=== PATIENT | female | born 1985 | race Caucasian/White ===

== ENCOUNTER 2018-03-19 16:35 | Emergency (ER) | payer OTHER ==
--- NOTE | 2018-03-19 17:15 | ED ---
Complex/Multi-Sys Presentation - HPI Summary HPI Summary: This patient is a 32 year old F presenting to [facility] accompanied by an older woman with a chief complaint of alleged withdrawal from tizanidine. The patient rates the pain 8/10 in severity. Patient reports vomiting, fever, myalgia, GRANADO, and fatigue. Pt states she ran out of her tizanidine this morning between the hours of 0200 and 0700 this morning. Pt states she is unsure how much she takes she states I dont know I just wake up my head hurts, I take more and go back to bed this cycle occurs multiple times throughout the night. She states she just arrived in [place] less than a week ago and that her PCP in [place] wrote her the script for the tizanidine. She reports that her refill is the 3rd of next month and that she takes 2-4mg tablets BID. Pt just got off opiates 9 days ago per triage note. In the room patient states she does not believe tizanidine will be enough to help her headache, when told she would receive Benadryl and reglan she is visible upset and has nothing wrong with her sinuses and verbalizes that she does not understand why she would need that. - History Of Current Complaint Chief Complaint: EDDetoxRequest Time Seen by Provider: 03/19/18 16:50 Hx Obtained From: Patient Onset/Duration: Lasting Hours, Still Present Timing: Constant Severity Currently: Moderate Severity Initially: Moderate Associated Signs And Symptoms: Positive: Other - vomiting, fever, myalgia, GRANADO, and fatigue - Allergies/Home Medications Allergies/Adverse Reactions: Allergies Allergy/AdvReac Type Severity Reaction Status Date / Time No Known Allergies Allergy Verified 03/19/18 16:43 Home Medications: Home Medications Aspirin/Acetaminophen/Caffeine [Excedrin Extra Strength Caplet] 1 each PO Q1H PRN 03/19/18 [History Confirmed 03/19/18] Baclofen TAB* [Lioresal TAB*] 10 mg PO TID PRN 03/19/18 [History Confirmed 03/19] Rizatriptan Benzoate [Maxalt-Denier Control Operator] 10 mg PO DAILY PRN 03/19/18 [History Confirmed 03/19/18] clonazePAM TAB(*) [KlonoPIN TAB(*)] 1 mg PO TID PRN 03/19/18 [History Confirmed 03/19/18] tiZANidine TAB* 8 mg PO BID 03/19/18 [History Confirmed 03/19/18] PMH/Surg Hx/FS Hx/Imm Hx Endocrine/Hematology History: Denies: Hx Diabetes Cardiovascular History: Denies: Hx Auto Implanted Cardiovert Defib Neurological History: Reports: Hx Headaches, Hx Migraine Psychiatric History: Reports: Hx Anxiety, Hx Depression - MDD , Hx Post Traumatic Stress Disorder Infectious Disease History: No Infectious Disease History: Denies: Traveled Outside the [place] in Last 30 Days - Family History Known Family History: Positive: Non-Contributory - Social History Alcohol Use: Rare Substance Use Type: Reports: None Smoking Status (MU): Light Every Day Tobacco Smoker Review of Systems Positive: Fever, Fatigue Positive: Vomiting Positive: Myalgia Positive: Headache All Other Systems Reviewed And Are Negative: Yes Physical Exam - Summary Physical Exam Summary: Appearance: Well appearing, no pain distress Skin: warm, dry, reflects adequate perfusion Head/face: normal Eyes: EOMI, GENE ENT: normal Neck: supple, non-tender Respiratory: CTA, breath sounds present Cardiovascular: RRR, pulses symmetrical Abdomen: non-tender, soft Musculoskeletal: normal, strength/ROM intact Neuro: normal, sensory motor intact, A&Ox3 Triage Information Reviewed: Yes Vital Signs On Initial Exam: Initial Vitals Temp Pulse Resp BP Pulse Ox 100.6 F 138 18 131/93 97 03/19/18 16:36 03/19/18 16:36 03/19/18 16:36 03/19/18 16:36 03/19/18 16:36 Vital Signs Reviewed: Yes Diagnostics - Vital Signs Vital Signs Temp Pulse Resp BP Pulse Ox 03/19/18 16:36 100.6 F 138 18 131/93 97 - Laboratory Result Diagrams: 03/19/18 17:31 03/19/18 17:31 Lab Statement: Any lab studies that have been ordered have been reviewed, and results considered in the medical decision making process. - CT CT Brain CT Interpretation Completed By: Radiologist Lida Multi-Symp Course/Dx Assessment/Plan: This patient is a 32 year old F presenting to [facility] accompanied by an older woman with a chief complaint of alleged withdrawal from tizanidine. Patient reports vomiting, fever, myalgia, GRANADO, and fatigue. CT brain reveals, per radiologist, No acute intracranial abnormality. Bloodwork and UA obtained. In the ED course the patient was given fioricet, Benadryl, toradol, solumedrol, reglan, and IV fluids. Patient will be discharged with prescription for zanaflex and fioricet and follow up from PCP referral center. The patient is agreeable with this plan. - Diagnoses Differential Diagnoses/HQI/PQRI: Other - headache Provider Diagnoses: Headache Discharge - Sign-Out/Discharge Documenting (check all that apply): Patient Departure - Discharge Plan Condition: Stable Disposition: HOME Prescriptions: Butalb/Acetamin/Caff TAB* [Fioricet TAB*] 1 tab PO TID #15 tab MDD 3 tiZANidine TAB* [Zanaflex TAB*] 4 mg PO DAILY #30 tab MDD 8mg Patient Education Materials: Acute Headache (ED) Referrals: [facility] [Outside] [facility] [Outside] Additional Instructions: Follow up with your primary care physician in 1-3 days. RETURN TO THE EMERGENCY DEPARTMENT FOR CHANGING OR WORSENING SYMPTOMS. - Billing Disposition and Condition Condition: STABLE Disposition: Home - Attestation Statements Document Initiated by Neyibe: Yes Documenting Scribe: Moe Shoemaker Provider For Whom Neyibe is Documenting (Include Credential): Khai Beck MD Scribe Attestation: Moe Courtney scribed for Khai Beck MD on 03/19/18 at 2134. Scribe Documentation Reviewed: Yes Provider Attestation: The documentation as recorded by the Moe garcia accurately reflects the service I personally performed and the decisions made by , Khai Beck MD
[2018-03-19] MEDS ORDERED: Metoclopramide IV* 5 MG/ML 2 ML VIAL IV ONE (17:20)
[2018-03-19] MEDS ORDERED: NS 0.9% 1000 ML* 1,000 ML IV ONE (17:20)
[2018-03-19] MEDS ORDERED: diPHENhydraMINE IV* 50 MG/ML 1 ml VIAL (BENADRYL) IV ONE (17:20)
[2018-03-19] MEDS ORDERED: diPHENhydraMINE PO* 50 MG PO ONE (17:42)
[2018-03-19 17:43] LABS: ABS Basophils 0.1 10^3/ul (0-0.2); ABS Eosinophils 0 10^3/ul (0-0.6); ABS Monocytes 0.3 10^3/ul (0-0.8); ABS Neutrophils 7.9 10^3/ul (1.5-7.7); ABS Nucleated RBC 0 10^3/ul; Eosinophil % 0.1 % (0-6); Hematocrit 43 % (35-47); Hemoglobin 14.3 g/dl (12.0-16.0); Lymphocyte % 10.9 % (25-47); Mean Corpuscular HGB Conc 34 g/dl (31-36); Mean Corpuscular Hemoglobin 31 pg (27-31); Mean Corpuscular Volume 91 fL (80-97); Mean Platelet Volume 7.1 fL (7.4-10.4); Nucleated Red Blood Cells % 0; Platelet Count 497 10^3/ul (150-450); Red Blood Count 4.67 10^6/ul (4.00-5.40); Red Cell Distribution Width 14 % (10.5-15); White Blood Count 9.3 10^3/ul (3.5-10.8)
[2018-03-19] MEDS ORDERED: diPHENhydraMINE PO* 50 MG ONE (17:43)
[2018-03-19] MEDS ORDERED: methylPREDNISolone 125 MG* 2 ML VIAL IV ONE (17:46)
[2018-03-19 17:55] LABS: INR 0.93 (0.77-1.02)
[2018-03-19 17:59] LABS: EGFR Non-African American 82.1 (>60)
[2018-03-19 18:16] VITALS: BP 126/96
[2018-03-19 18:33] LABS: Urine Appearance Clear; Urine Blood 1+ (Negative); Urine Color Straw; Urine Ketones Negative (Negative); Urine Protein Negative (Negative); Urine Red Blood Cell Trace(0-2/hpf) (Absent); Urine Specific Gravity 1.009 (1.010-1.030); Urine Urobilinogen Negative (Negative); Urine White Blood Cell Trace(0-5/hpf) (Absent)
[2018-03-19] MEDS ORDERED: Ketorolac INJ* 30 MG/ML 1 ML VIAL IV PUSH ONE (18:57)
[2018-03-19] MEDS ORDERED: Ketorolac INJ* 30 MG/ML 1 ML VIAL ONE (18:58)
[2018-03-19] MEDS ORDERED: Butalb/Acetamin/Caff TAB* 1 TAB PO ONE (19:23)
[2018-03-19] MEDS ORDERED: tiZANidine TAB* 2 MG PO ONE (20:00)
== END 2018-03-19 20:00 | disposition home or self-care (01) ==
LOC: ED 16:35
DX: R51 Headache (principal); R11.10 Vomiting, unspecified; R50.9 Fever, unspecified; R53.83 Other fatigue; M79.10 Myalgia, unspecified site; F41.9 Anxiety disorder, unspecified; F19.939 Other psychoactive substance use, unspecified with withdrawal, unspecified; F17.200 Nicotine dependence, unspecified, uncomplicated
CPT/HCPCS: 36415; 70450; 80053; 81003; 81015; 84702; 85025; 85610; 85730; 87086; 96361; 96374; 96375; 99282; A9270-GY; J1885; J2765; J2930

== ENCOUNTER 2018-04-16 23:32 | Emergency (ER) | payer MEDICAID ==
[2018-04-17] MEDS: NS 0.9% 1000 ML* 2,000 ML IV ONE (00:02)
--- NOTE | 2018-04-17 00:12 | ED ---
Syncope/Near Syncope - HPI Summary HPI Summary: A 32 y/o female accompanied by friends brought in by ambulance presents to the ED c/o syncopal episodes. In the ED room, the patient has a pulse of 81 BPM, O2 saturation of 99%, and blood pressure of 107/71. As per triage, "Pt brought in by [facility] d/t syncope. Pt states she has been smoking marijuana today and syncopized. EMS report they were dispatched to her home for same complaint earlier but pt signed off. Pt with no c/o pain or discomfort expressed at this time. cardiac monitor applied with noted NSR and HR 79. IV line placed by EMS. Awaiting ED MD evaluation". According to the patient, she had two syncope episodes in the last hour back to back. She stated that she passed out and then came back to her senses, then passed out again. Her friend stated that she heart the patient fall. She noted that the patient was going in and out of consciousness. The patient further noted that this has never happened before. Patient saw her PCP a few days ago, but no blood work was done, however, there was blood work that was done around which she is not sure if it was normal or not. Patient had a couple bowls of cereal earlier. Patient thinks her period started a couple days ago, but she is not sure. Patient takes Excedrin. No PMHx of anemia. - History Of Current Complaint Chief Complaint: EDSyncope Time Seen by Provider: 04/16/18 23:39 Hx Obtained From: Patient Onset/Duration: Sudden Onset, Lasting Minutes Timing: Intermittent Episode Lasting Context: Witnessed - PATIENT'S FRIEND HEARD PATIENT FALL Activity At Onset: At Rest Aggravating Factor(s): Nothing Alleviating Factor(s): Nothing Associated Signs And Symptoms: Negative - Allergies/Home Medications Allergies/Adverse Reactions: Allergies Allergy/AdvReac Type Severity Reaction Status Date / Time No Known Allergies Allergy Verified 04/16/18 23:43 PMH/Surg Hx/FS Hx/Imm Hx Endocrine/Hematology History: Denies: Hx Diabetes Cardiovascular History: Denies: Hx Auto Implanted Cardiovert Defib Neurological History: Reports: Hx Headaches, Hx Migraine Psychiatric History: Reports: Hx Anxiety, Hx Depression - MDD , Hx Post Traumatic Stress Disorder - Surgical History Surgery Procedure, Year, and Place: PER PATIENT, NO PRIOR SURGERIES. Infectious Disease History: No Infectious Disease History: Denies: Traveled Outside the [place] in Last 30 Days - Family History Known Family History: Negative: Blood Disorder - Social History Alcohol Use: Rare Substance Use Type: Reports: Marijuana Smoking Status (MU): Light Every Day Tobacco Smoker Review of Systems Negative: Fever Neurological: Other - POSITIVE: LOC Positive: Syncope All Other Systems Reviewed And Are Negative: Yes Physical Exam - Summary Physical Exam Summary: VITAL SIGNS: Reviewed. GENERAL: Patient is a pale-looking female who is lying comfortable in the stretcher. Patient is not in any acute respiratory distress. HEAD AND FACE: No signs of trauma. No ecchymosis, hematomas or skull depressions. No sinus tenderness. EYES: PERRLA, EOMI x 2, No injected conjunctiva, no nystagmus. EARS: Hearing grossly intact. Ear canals and tympanic membranes are within normal limits. MOUTH: Oropharynx within normal limits. NECK: Supple, trachea is midline, no adenopathy, no JVD, no carotid bruit, no c- spine tenderness, neck with full ROM. CHEST: Symmetric, no tenderness at palpation LUNGS: Clear to auscultation bilaterally. No wheezing or crackles. CVS: Regular rate and rhythm, S1 and S2 present, no murmurs or gallops appreciated. ABDOMEN: Soft, non-tender. No signs of distention. No rebound no guarding, and no masses palpated. Bowel sounds are normal. EXTREMITIES: FROM in all major joints, no edema, no cyanosis or clubbing. NEURO: Alert and oriented x 3. No acute neurological deficits. Speech is normal and follows commands. SKIN: Pale skin Triage Information Reviewed: Yes Vital Signs On Initial Exam: Initial Vitals Temp Pulse Resp BP Pulse Ox 99.1 F 79 16 107/71 99 04/16/18 23:39 04/16/18 23:39 04/16/18 23:39 04/16/18 23:39 04/16/18 23:39 Vital Signs Reviewed: Yes Diagnostics - Vital Signs Vital Signs Temp Pulse Resp BP Pulse Ox 04/16/18 23:39 99.1 F 79 16 107/71 99 - Laboratory Result Diagrams: 04/17/18 00:18 04/17/18 00:18 Lab Statement: Any lab studies that have been ordered have been reviewed, and results considered in the medical decision making process. - EKG 0008 Cardiac Rate: NL - 76 BPM EKG Rhythm: Sinus Rhythm - 76 BPM Summary of EKG Findings: Normal axis. Normal interval. No ischemic changes. Re-Evaluation - Re-Evaluation First Eval Re-Evaluation Time: 01:50 Change: Improved Comment: PATIENT FEELS MUCH BETTER. PATIENT WOULD LIKE TO GO HOME. Course/Dx Course Of Treatment: A 32 y/o female accompanied by friends brought in by ambulance presents to the ED c/o syncopal episodes. In the ED room, the patient has a pulse of 81 BPM, O2 saturation of 99%, and blood pressure of 107/71. Physical examination revealed patients skin is pale. An EKG revealed NSR of 76 BPM. Normal axis. Normal interval. No ischemic changes. Hematology, Chemistry, and Serology screens were done. No significant laboratory abnormalities were found. In the ED course, the patient received IV fluids. Patient was able to walk around the ED with no complications. Patient indicated that she would like to go home. Patient will be discharged with a diagnosis of syncope. Patient is to follow up with primary care provider in 1-2 days. Patient is to return to ED for any new or worsening symptoms. Patient is agreeable with this plan. - Diagnoses Provider Diagnoses: Syncope Discharge - Sign-Out/Discharge Documenting (check all that apply): Patient Departure - DISCHARGE - Discharge Plan Condition: Stable Disposition: HOME Patient Education Materials: Syncope (ED) Referrals: [facility] [Outside] - 2 Days Additional Instructions: FOLLOW UP WITH PRIMARY CARE PROVIDER IN 1-2 DAYS. RETURN TO THE ED FOR ANY NEW OR WORSENING SYMPTOMS. - Attestation Statements Document Initiated by Kathye: Yes Documenting Scribe: Albaro Penn Provider For Whom Erin is Documenting (Include Credential): Abbey Wen MD Scribe Attestation: Albaro Courtney, scribed for Abbey Wen MD on 04/17/18 at 0201. Status of Scribe Document: Ready
[2018-04-17 00:26] LABS: ABS Basophils 0 10^3/ul (0-0.2); ABS Eosinophils 0 10^3/ul (0-0.6); ABS Monocytes 0.4 10^3/ul (0-0.8); ABS Neutrophils 5.1 10^3/ul (1.5-7.7); ABS Nucleated RBC 0 10^3/ul; Eosinophil % 0.8 %; Hematocrit 28 % (35-47); Lymphocyte % 14.7 %; Mean Corpuscular HGB Conc 33 g/dl (31-36); Mean Corpuscular Hemoglobin 30 pg (27-31); Mean Corpuscular Volume 91 fL (80-97); Nucleated Red Blood Cells % 0; Platelet Count 395 10^3/ul (150-450); Red Blood Count 3.06 10^6/ul (4.00-5.40); Red Cell Distribution Width 14 % (10.5-15); White Blood Count 6.5 10^3/ul (3.5-10.8)
[2018-04-17 00:40] LABS: INR 0.92 (0.77-1.02)
[2018-04-17 00:42] LABS: ALT 8 U/L (7-52); AST 10 U/L (13-39); Albumin 3.7 g/dL (3.2-5.2); Albumin/Globulin Ratio 1.6 (1-3); Alkaline Phosphatase 89 U/L (34-104); Anion Gap 7 mmol/L (2-11); BUN/Creatinine Ratio 23.2 (8-20); Blood Urea Nitrogen 16 mg/dL (6-24); CO2 Carbon Dioxide 24 mmol/L (22-32); Calcium 8.6 mg/dL (8.6-10.3); Chloride 110 mmol/L (101-111); EGFR Non-African American 97.4 (>60); Globulin 2.3 g/dL (2-4); Glucose 158 mg/dL (70-100); Potassium 3.6 mmol/L (3.5-5.0); Sodium 141 mmol/L (135-145)
[2018-04-17 00:48] LABS: HCG Pregnancy < 0.60 mIU/mL
[2018-04-17 00:57] LABS: Alcohol < 10 mg/dL (<10)
[2018-04-17 01:52] VITALS: BP 94/59
== END 2018-04-17 02:08 | disposition home or self-care (01) ==
LOC: ED 23:32
DX: R55 Syncope and collapse (principal); F17.210 Nicotine dependence, cigarettes, uncomplicated
CPT/HCPCS: 36415; 80053; 80320; 84484; 84702; 85025; 85610; 85730; 86850; 86900; 86901; 93005; 96360; 99283; G0480

== ENCOUNTER → 2018-07-27 19:29 | Emergency (ER) | payer OTHER ==
[~2018-07-27 19:29] MED LIST: clonazePAM TAB(*) 1 MG PO ONE
--- OUTSIDE RECORDS SUMMARY | 2018-07-27 19:44 | XMS REPORT | Continuity of Care Document ---
:1985 External Reference #:[id number] Author Name Bren Aguillon Care Team Providers Name Role Phone Karolyn Recinos M.D. Primary Care Physician Unavailable Payers Date Identification Numbers Payment Provider Subscriber Effective: 2018 Policy Number: [id number] Vega Basilio Group Name: [id number] [address] PayID: [id number] [place] [address] Effective: 2018 Policy Number: [id number] Medicaid Nettie Basilio Expires: 2018 Group Name: 1 [id number] [address] PayID: [id number] [place] [address] Advance Directives Description No Information Available Problems Description No Information Family History Date Family Member(s) Observation Comments Father Alcoholism : (age 45 Years) Mother due to Heart Disease Social History Type Date Description Comments Sex Unknown Marital Status Single Lives With Roommate Occupation Unemployed Tobacco Use Start: Unknown Light tobacco smoker (10 or fewer cigarettes/day) Smoking Status Reviewed: 06/28/18 Light tobacco smoker (10 or fewer cigarettes/day) ETOH Use Has consumed alcohol in the past Tobacco Use Start: Unknown Light tobacco smoker (10 or fewer cigarettes/day) Recreational Drug Use Current Drug User THC Allergies, Adverse Reactions, Alerts Date Description Reaction Status Severity Comments 04/04/2018 Lamictal Active suicidal ideation, sudden onset. 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 04/04/ Active Tablets 10mg 18tab take 1 2017 Dispers s tablet as Recinos, needed for MD migraine Clonazepam / Active Tablets 1mg 30tab 1 tablet 0000 s once a day Recinos, as needed MD for anxiety Buprenorphine 06/05/ Hx Tablets Sub 2mg 60tab 1 sl 1-2 x G89.4 HCL 2018 - s day as Recinos, 06/28/ needed for MD 2019 pain Prednisone 05/08/ Hx Tablets 20mg 6tabs 3 tabs G43.101 2018 - once a day Recinos, 06/05/ for 3 days MD 2018 Ketorolac 05/08/ Hx Solution 30mg/ml 2ml 2mL Im x 1 G43.101 Tromethamine 2018 - Recinos, 06/28/ MD 2018 Fioricet 04/04/ Hx Capsules 50-300-40 10cap 1 tab [place] 2017 - mg s daily as Senner, 06/05/ needed for DO 2019 migraines. Medications Administered in Office Medication Date Status Form Strength Qnty SIG Indications Ordering Provider No Injection 05/08/19 Administered Injection MD Jorje Immunizations Description No Information Available Vital Signs Date Vital Result Comment 06/28/2018 10:21am Height 65.25 inches 5'5.25" Weight 120.25 lb Heart Rate 80 /min BP Systolic 94 mmHg BP Diastolic 64 mmHg Body Temperature 98.2 F O2 % BldC Oximetry 97 % BMI (Body Mass Index) 19.9 kg/m2 06/05/2018 1:40pm Height 65.25 inches 5'5.25" Weight 121.38 lb Heart Rate 107 /min BP Systolic Sitting 122 mmHg BP Diastolic Sitting 76 mmHg Respiratory Rate 20 /min O2 % BldC Oximetry 97 % at rest on room air BMI (Body Mass Index) 20.0 kg/m2 05/08/2018 3:22pm Height 65.25 inches 5'5.25" Weight 114.12 lb Heart Rate 111 /min BP Systolic 129 mmHg BP Diastolic 89 mmHg Body Temperature 98.2 F O2 % BldC Oximetry 98 % BMI (Body Mass Index) 18.8 kg/m2 04/13/2018 11:44am Weight 111.00 lb Heart Rate 82 /min BP Systolic 110 mmHg BP Diastolic 72 mmHg Respiratory Rate 16 /min Pain Level 5 head O2 % BldC Oximetry 98 % 04/04/2018 3:46pm Height 67 inches 5'7" Weight 114.00 lb Heart Rate 76 /min BP Systolic 104 mmHg BP Diastolic 64 mmHg Respiratory Rate 16 /min Body Temperature 98.8 F Pain Level 5 head O2 % BldC Oximetry 98 % BMI (Body Mass Index) 17.9 kg/m2 Results Test Date Facility Test Result H/L Range Note Drug Abuse 06/28/2018 [facility] Urine Amphetamine Negative ng/ mL 1, 2 [address] [place] [address] [phone] Urine Barbiturates Negative ng/mL 3 Urine Benzodiazepines Negative ng/mL 4 Urine Cocaine Negative ng/mL 5 Urine Phencyclidine Negative ng/mL Cutoff: 25 Urine Tetrahydrocannabinol Negative ng/mL Cutoff: 50 6 Creatinine, Urine 116.6 mg/dL Specific [place] 1.013 pH 5.8 Oxidants Negative 7 Adulterants Comment Normal Codeine, Ur Not Detected ng/mL Cutoff: 25 8 Ezxjroj-0-xpdu-glucuronide, Ur Not Detected ng/mL 9 Morphine, Ur Not Detected ng/mL Cutoff: 25 10 Tkttjgzv-6-wnew-glucuronide, U Not Detected ng/mL 11 6-monoacetylmorphine, Ur Not Detected ng/mL Cutoff: 25 12 Hydrocodone, Ur Not Detected ng/mL Cutoff: 25 13 Norhydrocodone, Ur Not Detected ng/mL Cutoff: 25 14 Dihydrocodeine, Ur Not Detected ng/mL Cutoff: 25 15 Hydromorphone, Ur Not Detected ng/mL Cutoff: 25 16 Gaireoebqjsry9jnhvvppoyqbvqtf Not Detected ng/mL 17 Oxycodone, Ur Not Detected ng/mL Cutoff: 25 18 Noroxycodone, Ur Not Detected ng/mL Cutoff: 25 19 Oxymorphone, Ur Not Detected ng/mL Cutoff: 25 20 Ffbqqujzdaa-3-udgk-glucuronide Not Detected ng/mL 21 Noroxymorphone, Ur Not Detected ng/mL Cutoff: 25 22 Fentanyl, Ur Not Detected ng/mL Cutoff: 2 23 Norfentanyl, Ur Not Detected ng/mL Cutoff: 2 24 Meperidine, Ur Not Detected ng/mL Cutoff: 25 25 Normeperidine, Ur Not Detected ng/mL Cutoff: 25 26 Naloxone, Ur Not Detected ng/mL Cutoff: 25 27 Adqfvdnh-1-zent-glucuronide, U Not Detected ng/mL 28 Methadone, Ur Not Detected ng/mL Cutoff: 25 29 Eddp, Ur Not Detected ng/mL Cutoff: 25 30 Propoxyphene, Ur Not Detected ng/mL Cutoff: 25 31 Norpropoxyphene, Ur Not Detected ng/mL Cutoff: 25 32 Tramadol, Ur Not Detected ng/mL Cutoff: 25 33 O-desmethyltramadol, Ur Not Detected ng/mL Cutoff: 25 34 Tapentadol, Ur Not Detected ng/mL Cutoff: 25 35 N-desmethyltapentadol, Ur Not Detected ng/mL Cutoff: 50 36 Osnpacwrjc-rspw-dihjqvvzole, U Not Detected ng/mL 37 Buprenorphine, Ur Present ng/mL Abnormal Cutoff: 5 38 Norbuprenorphine, Ur Present ng/mL Abnormal Cutoff: 5 39 Norbuprenorphine glucuronide Present ng/mL Abnormal Cutoff: 20 40 Opioid Interpretation See Comment 41 Thyroid Panel 06/05/2018 [facility] Free T4 (Free 0.63 ng/dL N 0.61-1.[address] Thyroxine) [place] [address] [phone] Thyroxine 6.97 ?g/dL N 6.09-12.23 TSH (Thyroid Stim Horm) 0.93 mcIU/mL N 0.34-5.60 Laboratory test 06/05/2018 [facility] Vitamin B12 446 pg/mL N 180-914 [address] [place] [address] [phone] Liver Function 06/05/2018 [facility] Total Protein 7.1 g/dL N 6.4-8.[address] [place] [address] [phone] Albumin 4.6 g/dL N 3.2-5.2 Globulin 2.5 g/dL N 2-4 Albumin/Globulin Ratio 1.8 N 1-3 Total Bilirubin 0.20 mg/dL N 0.2-1.0 Direct Bilirubin 0.00 mg/dL Low 0.03-0.18 Alkaline Phosphatase 131 U/L High 34-104 Alt 13 U/L N 7-52 Ast 13 U/L N 13-39 Basic Metabolic Panel 06/05/2018 [facility] Sodium 143 mmol/L N 135-[address] [place] [address] [phone] Potassium 4.4 mmol/L N 3.5-5.0 Chloride 108 mmol/L N 101-111 Co2 Carbon Dioxide 27 mmol/L N 22-32 Anion Gap 8 mmol/L N 2-11 Glucose 94 mg/dL N 70-100 Blood Urea Nitrogen 24 mg/dL N 6-24 Creatinine 0.64 mg/dL N 0.51-0.95 BUN/Creatinine Ratio 37.5 High 8-20 Calcium 9.5 mg/dL N 8.6-10.3 Egfr Non- 106.2 >60 Egfr 128.5 >60 43 Drug Abuse 20 06/05/2018 [facility] Urine Amphetamine Negative ng/mL [address] [place] [address] [phone] Urine Barbiturates Negative ng/mL 45 Urine Benzodiazepines Negative ng/mL 46 Urine Cocaine Negative ng/mL 47 Urine Phencyclidine Negative ng/mL Cutoff: 25 Urine Tetrahydrocannabinol Negative ng/mL Cutoff: 50 48 Creatinine, Urine 137.7 mg/dL Specific [place] 1.021 pH 5.4 Oxidants Negative 49 Adulterants Comment Normal Codeine, Ur Not Detected ng/mL Cutoff: 25 50 Zxtmtdp-7-hlvy-glucuronide, Ur Not Detected ng/mL 51 Morphine, Ur Not Detected ng/mL Cutoff: 25 52 Aglpcxrg-8-ddlh-glucuronide, U Not Detected ng/mL 53 6-monoacetylmorphine, Ur Not Detected ng/mL Cutoff: 25 54 Hydrocodone, Ur Not Detected ng/mL Cutoff: 25 55 Norhydrocodone, Ur Not Detected ng/mL Cutoff: 25 56 Dihydrocodeine, Ur Not Detected ng/mL Cutoff: 25 57 Hydromorphone, Ur Not Detected ng/mL Cutoff: 25 58 Sboeajqitutof7uuscggxztrhsvfz Not Detected ng/mL 59 Oxycodone, Ur Not Detected ng/mL Cutoff: 25 60 Noroxycodone, Ur Not Detected ng/mL Cutoff: 25 61 Oxymorphone, Ur Not Detected ng/mL Cutoff: 25 62 Flqmigpglbx-3-rfhb-glucuronide Not Detected ng/mL 63 Noroxymorphone, Ur Not Detected ng/mL Cutoff: 25 64 Fentanyl, Ur Not Detected ng/mL Cutoff: 2 65 Norfentanyl, Ur Not Detected ng/mL Cutoff: 2 66 Meperidine, Ur Not Detected ng/mL Cutoff: 25 67 Normeperidine, Ur Not Detected ng/mL Cutoff: 25 68 Naloxone, Ur Not Detected ng/mL Cutoff: 25 69 Biwgxgga-1-qfdo-glucuronide, U Not Detected ng/mL 70 Methadone, Ur Not Detected ng/mL Cutoff: 25 71 Eddp, Ur Not Detected ng/mL Cutoff: 25 72 Propoxyphene, Ur Not Detected ng/mL Cutoff: 25 73 Norpropoxyphene, Ur Not Detected ng/mL Cutoff: 25 74 Tramadol, Ur Not Detected ng/mL Cutoff: 25 75 O-desmethyltramadol, Ur Not Detected ng/mL Cutoff: 25 76 Tapentadol, Ur Not Detected ng/mL Cutoff: 25 77 N-desmethyltapentadol, Ur Not Detected ng/mL Cutoff: 50 78 Yrepdennry-lrvl-bxmnckazcsz, U Not Detected ng/mL 79 Buprenorphine, Ur Not Detected ng/mL Cutoff: 5 80 Norbuprenorphine, Ur Not Detected ng/mL Cutoff: 5 81 Norbuprenorphine glucuronide Not Detected ng/mL Cutoff: 20 82 Opioid Interpretation See Comment 83 1 [id number] REFERENCE VALUE Cutoff: 500 3 REFERENCE VALUE Cutoff: 200 4 REFERENCE VALUE Cutoff: 100 5 REFERENCE VALUE Cutoff: 150 6 ADDITIONAL INFORMATION This report is intended for use in clinical monitoring or management of patients. It is not intended for use in employment-related testing. 7 REFERENCE VALUE Cutoff: 200 mg/L 8 Tylenol 3 9 Metabolite of codeine REFERENCE VALUE Cutoff: 100 10 [place] Portillo, Contin; Also a minor metabolite (10%) of codeine and can be seen in low concentrations (<2,000 ng/mL) with poppy seed ingestion. 11 Metabolite of morphine REFERENCE VALUE Cutoff: 100 12 Metabolite of heroin 13 Lortab, Wilson, Vicodin; Also a very minor metabolite of codeine and impurity (<1%) of oxycodone. 14 Metabolite of hydrocodone 15 Metabolite of hydrocodone 16 Dilaudid, Exalgo; Also a metabolite of hydrocodone and a minor (<5%) metabolite of morphine. 17 Metabolite of hydromorphone REFERENCE VALUE Cutoff: 100 18 Endocet, Percocet, Oxycontin 19 Metabolite of oxycodone 20 Numorphan, Opana; Also a metabolite of oxycodone. 21 Metabolite of oxymorphone REFERENCE VALUE Cutoff: 100 22 Metabolite of oxymorphone 23 Actiq, Duragesic, Fentora 24 Metabolite of fentanyl 25 Demerol 26 Metabolite of meperidine 27 Narcan 28 Metabolite of naloxone REFERENCE VALUE Cutoff: 100 29 Dolophine 30 Metabolite of methadone 31 Darvon, Darvocet 32 Metabolite of propoxyphene 33 Tradol, Ultram, Ultracet 34 Metabolite of tramadol 35 Nucynta 36 Metabolite of tapentadol 37 Metabolite of tapentadol REFERENCE VALUE Cutoff: 100 38 Buprenex, Suboxone 39 Metabolite of buprenorphine 40 Metabolite of buprenorphine 41 Test detected the presence of buprenorphine and its metabolites (norbuprenorphine, norbuprenorphine glucuronide). Suspect use of buprenorphine within the past three days. ADDITIONAL INFORMATION This test was developed and its performance characteristics determined by [facility] in a manner consistent with CLIA requirements. This test has not been cleared or approved by the U.S. Food and Drug Administration. Test Performed by: [facility] [address] [place] [address] 42 Normal Range 180 to 914 Indeterminate Range 145 to 180 Deficient Range <145 43 Because ethnic data is not always readily available, this report includes an eGFR for both -Americans and non- Americans. The National Kidney Disease Education Program (NKDEP) does not endorse the use of the MDRD equation for patients that are not between the ages of 18 and 70, are , have extremes of body size, muscle mass, or nutritional status, or are non- or non-. According to the National Kidney Foundation, irrespective of diagnosis, the stage of the disease is based on the level of kidney function: Stage Description GFR(mL/min/1.73 m(2)) 1 Kidney damage with normal or decreased GFR 90 2 Kidney damage with mild decrease in GFR 60-89 3 Moderate decrease in GFR 30-59 4 Severe decrease in GFR 15-29 5 Kidney failure <15 (or dialysis) 44 REFERENCE VALUE Cutoff: 500 45 REFERENCE VALUE Cutoff: 200 46 REFERENCE VALUE Cutoff: 100 47 REFERENCE VALUE Cutoff: 150 48 ADDITIONAL INFORMATION This report is intended for use in clinical monitoring or management of patients. It is not intended for use in employment-related testing. 49 REFERENCE VALUE Cutoff: 200 mg/L 50 Tylenol 3 51 Metabolite of codeine REFERENCE VALUE Cutoff: 100 52 [place] Portillo, Contin; Also a minor metabolite (10%) of codeine and can be seen in low concentrations (<2,000 ng/mL) with poppy seed ingestion. 53 Metabolite of morphine REFERENCE VALUE Cutoff: 100 54 Metabolite of heroin 55 Lortab, Wilson, Vicodin; Also a very minor metabolite of codeine and impurity (<1%) of oxycodone. 56 Metabolite of hydrocodone 57 Metabolite of hydrocodone 58 Dilaudid, Exalgo; Also a metabolite of hydrocodone and a minor (<5%) metabolite of morphine. 59 Metabolite of hydromorphone REFERENCE VALUE Cutoff: 100 60 Endocet, Percocet, Oxycontin 61 Metabolite of oxycodone 62 Numorphan, Opana; Also a metabolite of oxycodone. 63 Metabolite of oxymorphone REFERENCE VALUE Cutoff: 100 64 Metabolite of oxymorphone 65 Actiq, Duragesic, Fentora 66 Metabolite of fentanyl 67 Demerol 68 Metabolite of meperidine 69 Narcan 70 Metabolite of naloxone REFERENCE VALUE Cutoff: 100 71 Dolophine 72 Metabolite of methadone 73 Darvon, Darvocet 74 Metabolite of propoxyphene 75 Tradol, Ultram, Ultracet 76 Metabolite of tramadol 77 Nucynta 78 Metabolite of tapentadol 79 Metabolite of tapentadol REFERENCE VALUE Cutoff: 100 80 Buprenex, Suboxone 81 Metabolite of buprenorphine 82 Metabolite of buprenorphine 83 No opioids were detected. The absence of expected drug(s) and/or drug metabolite(s) may indicate non-compliance, altered pharmacokinetics, inappropriate timing of specimen collection relative to drug administration, diluted/adulterated urine, or limitations of testing. ADDITIONAL INFORMATION This test was developed and its performance characteristics determined by [facility] in a manner consistent with CLIA requirements. This test has not been cleared or approved by the U.S. Food and Drug Administration. Test Performed by: [facility] [address] [facility], [place] [address] Procedures Date Code Description Status 05/08/2018 26098 Admin Of Inj Completed Encounters Type Date Location Provider Dx Diagnosis Office Visit 06/05/2018 [facility] Internal Karolyn Recinos MD G89.4 Chronic pain 1:40p Medicine - [address] F33.9 Major depressive disorder, recurrent, unspecified G43.109 Migraine with aura, not intractable, w/o status migrainosus Office Visit 05/08/2018 3:20p [facility] Internal Karolyn Recinos, G43.101 Migraine with Medicine - MD aura, not [address] intractable, with status migrainosus G44.41 Drug-induced headache, not elsewhere classified, intractable F33.1 Major depressive disorder, recurrent, moderate F43.12 Post-traumatic stress disorder, chronic Office Visit 04/13/2018 11:20a [facility] [place], G43.819 Other migraine, [facility] intractable, without status migrainosus G44.41 Drug-induced headache, not elsewhere classified, intractable F43.12 Post-traumatic stress disorder, chronic Office Visit 04/04/2018 [facility] [place] F43.12 Post-traumatic 2:40p [facility] [place], DO stress disorder, chronic G43.819 Other migraine, intractable, without status migrainosus G44.41 Drug-induced headache, not elsewhere classified, intractable Plan of Treatment Future Appointment(s):07/14/2018 11:00 am - Karolyn Recinos MD at [facility] Internal Medicine - Jtrapkqfv46/16/2019 9:00 am - Luis Carlson M.D. at [facility]06/28/2018 - Karolyn Recinos MDG43.109 Migraine with aura , not intractable, without status migrainoComments:Please start keeping a headache diary and take the Maxalt as soon as you get any indication that youmight get a migraine later. If you wait until you have the actual headache it does not work as wellG89.4 Chronic pain syndromeNew Medication:Buprenorphine HCL 8 mg - 1-2 tabs SL q 12 hrs as needed for pain MDD 3Comments:I am increasing the dose of buprenorphine to 1-2 tabs to be taken twice a day, maximum 3 tabs in oneday. Please remember to bring your bottle to the next visit.F33.9 Major depressive disorder, recurrent, unspecifiedComments:I encourage you to continue therapy at [facility] and have your therapist reach out to me with any concerns or updates. You would probably benefit from seeing a psychiatrist to discuss a trial of medication
--- OUTSIDE RECORDS SUMMARY | 2018-07-27 19:44 | XMS REPORT | Continuity of Care Document ---
:1985 External Reference #:[id number] Author Name Shauna Villarreal Care Team Providers Name Role Phone Karolyn Recinos M.D. Primary Care Physician Unavailable Payers Date Identification Numbers Payment Provider Subscriber Effective: 2018 Policy Number: [id number] [place] Nettie Basilio Group Name: [id number] [address] PayID: [id number] [place] [address] Effective: 2018 Policy Number: [id number] Medicaid Nettie Basilio Expires: 2018 Group Name: 1 1 [address] PayID: [id number] [place] [address] Advance Directives Description No Information Available Problems Date Description Provider Status Onset: 07/26/2018 Migraine with typical aura Rebeka Khan, N.P. Active Onset: 07/26/2018 Chronic pain syndrome Rebeka Khan, N.P. Active Onset: 07/26/2018 Recurrent major depressive episodes Rebeka Khan, N.PGilmer Active Family History Date Family Member(s) Observation Comments Father Alcoholism : (age 45 Years) Mother due to Heart Disease Social History Type Date Description Comments Sex Unknown Marital Status Single Lives With Roommate Occupation Currently Working at [employer] Tobacco Use Start: Unknown Light tobacco smoker (10 or fewer cigarettes/day) Smoking Status Reviewed: 07/26/18 Light tobacco smoker (10 or fewer cigarettes/day) ETOH Use Has consumed alcohol in the past Tobacco Use Start: Unknown Light tobacco smoker (10 or fewer cigarettes/day) Recreational Drug Use Former Drug User THC, illegally obtained opiates Allergies, Adverse Reactions, Alerts Date Description Reaction Status Severity Comments 04/04/2018 Lamictal Active suicidal ideation, sudden onset. Medications Medication Date Status Form Strength Qnty SIG Indications Ordering Provider Naproxen 07/26/ Active Suspension 125mg/5ML 500ml 10 ml bid M25.50 Rebeka 2019 prn pain Varn, N.P. 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 Tablets 10mg 18tab take 1 2017 Dispers s tablet as Recinos, needed for MD migraine Clonazepam / Active Tablets 1mg 30tab 1 tablet s once a day Recinos, as needed MD for anxiety Buprenorphine 06/05/ Hx Tablets Sub 2mg 60tab 1 sl 1-2 x G89.4 Karolyn HCL 2018 - s day as Recinos, 06/28/ needed for MD 2019 pain Prednisone 05/08/ Hx Tablets 20mg 6tabs 3 tabs G43.101 2018 - once a day Recinos, 06/05/ for 3 days MD 2018 Ketorolac 05/08/ Hx Solution 30mg/ml 2ml 2mL Im x 1 G43.101 Tromethamine 2019 - Recinos, 06/28/ MD 2019 Fioricet 04/04/ Hx Capsules 50-300-40 10cap 1 tab [place] 2018 - mg s daily as Senner, 06/05/ needed for DO 2019 migraines. Medications Administered in Office Medication Date Status Form Strength Qnty SIG Indications Ordering Provider No Injection 05/08/19 Administered Injection MD Jorje Immunizations Description No Information Available Vital Signs Date Vital Result Comment 07/26/2018 4:04pm Height 65.5 inches 5'5.50" Weight 1248.00 lb Heart Rate 76 /min BP Systolic Sitting 103 mmHg BP Diastolic Sitting 64 mmHg Body Temperature 97.6 F O2 % BldC Oximetry 96 % BMI (Body Mass Index) 204.5 kg/m2 06/28/2018 10:21am Height 65.25 inches 5'5.25" Weight [...] Result H/L Range Note Drug Abuse 06/28/2018 [facility] Urine Amphetamine Negative ng/ mL 1, 2 [address] [place] [address] [phone] Urine Barbiturates Negative ng/mL 3 Urine Benzodiazepines Negative ng/mL 4 Urine Cocaine Negative ng/mL 5 Urine Phencyclidine Negative ng/mL Cutoff: 25 Urine Tetrahydrocannabinol Negative ng/mL Cutoff: 50 6 Creatinine, Urine 116.6 mg/dL Specific [place] 1.013 pH 5.8 Oxidants Negative 7 Adulterants Comment Normal Codeine, Ur Not Detected ng/mL Cutoff: 25 8 Nsopxgx-3-bgtc-glucuronide, Ur Not Detected ng/mL 9 Morphine, Ur Not Detected ng/mL Cutoff: 25 10 Jhxrhkig-2-xogr-glucuronide, U Not Detected ng/mL 11 6-monoacetylmorphine, Ur Not Detected ng/mL Cutoff: 25 12 Hydrocodone, Ur Not Detected ng/mL Cutoff: 25 13 Norhydrocodone, Ur Not Detected ng/mL Cutoff: 25 14 Dihydrocodeine, Ur Not Detected ng/mL Cutoff: 25 15 Hydromorphone, Ur Not Detected ng/mL Cutoff: 25 16 Mfbllmldnkhqw8zawxxzexjxhcaex Not Detected ng/mL 17 Oxycodone, Ur Not Detected ng/mL Cutoff: 25 18 Noroxycodone, Ur Not Detected ng/mL Cutoff: 25 19 Oxymorphone, Ur Not Detected ng/mL Cutoff: 25 20 Glrjonbipah-4-czmo-glucuronide Not Detected ng/mL 21 Noroxymorphone, Ur Not Detected ng/mL Cutoff: 25 22 Fentanyl, Ur Not Detected ng/mL Cutoff: 2 23 Norfentanyl, Ur Not Detected ng/mL Cutoff: 2 24 Meperidine, Ur Not Detected ng/mL Cutoff: 25 25 Normeperidine, Ur Not Detected ng/mL Cutoff: 25 26 Naloxone, Ur Not Detected ng/mL Cutoff: 25 27 Wttrvqzx-3-twwq-glucuronide, U Not Detected ng/mL 28 Methadone, Ur [...] Ur Not Detected ng/mL Cutoff: 50 36 Ratvmmvbdj-yipz-ndnmwguaaxa, U Not Detected ng/mL 37 Buprenorphine, Ur Present ng/mL Abnormal Cutoff: 5 38 Norbuprenorphine, Ur Present ng/mL Abnormal Cutoff: 5 39 Norbuprenorphine glucuronide Present ng/mL Abnormal Cutoff: 20 40 Opioid Interpretation See Comment 41 Thyroid Panel 06/05/2018 [facility] Free T4 (Free 0.63 ng/dL N 0.61-1.[address] Thyroxine) [place] [address] [phone] Thyroxine 6.97 ?g/dL N 6.09-12.23 TSH (Thyroid Stim Horm) 0.93 mcIU/mL N 0.34-5.60 Laboratory test 06/05/2018 [facility] Vitamin B12 446 pg/mL N 180-914 42 finding [address] [place] [address] [phone] Liver Function 06/05/2018 [facility] Total Protein 7.1 g/dL N 6.4-8.9 Panel [address] [place] [address] [phone] Albumin 4.6 g/dL N 3.2-5.2 Globulin 2.5 g/dL N 2-4 Albumin/Globulin Ratio 1.8 N 1-3 Total Bilirubin 0.20 mg/dL N 0.2-1.0 Direct Bilirubin 0.00 mg/dL Low 0.03-0.18 Alkaline Phosphatase 131 U/L High 34-104 Alt 13 U/L N 7-52 Ast 13 U/L N 13-39 Basic Metabolic Panel 06/05/2018 [facility] Sodium 143 mmol/L N 135-145 [address] [place] [address] [phone] Potassium 4.4 mmol/L N 3.5-5.0 Chloride 108 mmol/L N 101-111 Co2 Carbon Dioxide 27 mmol/L N 22-32 Anion Gap 8 mmol/L N 2-11 Glucose 94 mg/dL N 70-100 Blood Urea Nitrogen 24 mg/dL N 6-24 Creatinine 0.64 mg/dL N 0.51-0.95 BUN/Creatinine Ratio 37.5 High 8-20 Calcium 9.5 mg/dL N 8.6-10.3 Egfr Non- 106.2 >60 Egfr 128.5 >60 43 Drug Abuse 20 06/05/2018 [facility] Urine Amphetamine Negative ng/mL 44 Urine [address] [place] [address] [phone] Urine Barbiturates Negative ng/mL 45 Urine Benzodiazepines Negative ng/mL 46 Urine Cocaine Negative ng/mL 47 Urine Phencyclidine Negative ng/mL Cutoff: 25 Urine Tetrahydrocannabinol Negative ng/mL Cutoff: 50 48 Creatinine, Urine 137.7 mg/dL Specific [place] 1.021 pH 5.4 Oxidants Negative 49 Adulterants Comment Normal Codeine, Ur Not Detected ng/mL Cutoff: 25 50 Ypgsspo-8-qdml-glucuronide, Ur Not Detected ng/mL 51 Morphine, Ur Not Detected ng/mL Cutoff: 25 52 Lkbnmlpb-1-hchn-glucuronide, U Not Detected ng/mL 53 6-monoacetylmorphine, Ur Not Detected ng/mL Cutoff: 25 54 Hydrocodone, Ur Not Detected ng/mL Cutoff: 25 55 Norhydrocodone, Ur Not Detected ng/mL Cutoff: 25 56 Dihydrocodeine, Ur Not Detected ng/mL Cutoff: 25 57 Hydromorphone, Ur Not Detected ng/mL Cutoff: 25 58 Apbczuuxgvaff4mdzlgcgxrdfbhzz Not Detected ng/mL 59 Oxycodone, Ur Not Detected ng/mL Cutoff: 25 60 Noroxycodone, Ur Not Detected ng/mL Cutoff: 25 61 Oxymorphone, Ur Not Detected ng/mL Cutoff: 25 62 Snexkbmfkdn-1-ozjv-glucuronide Not Detected ng/mL 63 Noroxymorphone, Ur Not Detected ng/mL Cutoff: 25 64 Fentanyl, Ur Not Detected ng/mL Cutoff: 2 65 Norfentanyl, Ur Not Detected ng/mL Cutoff: 2 66 Meperidine, Ur Not Detected ng/mL Cutoff: 25 67 Normeperidine, Ur Not Detected ng/mL Cutoff: 25 68 Naloxone, Ur Not Detected ng/mL Cutoff: 25 69 Apezxbhq-8-rgdz-glucuronide, U Not Detected ng/mL 70 Methadone, Ur [...] Ur Not Detected ng/mL Cutoff: 50 78 Vfotkdpqjv-bviw-vhumznbbqtu, U Not Detected ng/mL 79 Buprenorphine, Ur Not Detected ng/mL Cutoff: 5 80 Norbuprenorphine, Ur Not Detected ng/mL Cutoff: 5 81 Norbuprenorphine glucuronide Not Detected ng/mL Cutoff: 20 82 Opioid Interpretation See Comment 83 1 [id number] 2 REFERENCE VALUE Cutoff: 500 3 REFERENCE [...] 100 12 Metabolite of heroin 13 Lortab, [place], Vicodin; Also a very minor metabolite of [...] developed and its performance characteristics determined by [facility] in a manner consistent with CLIA requirements. This test has not been cleared or approved by the U.S. Food and Drug Administration. Test Performed by: [facility] [address] [place] [address] 42 Normal Range 180 to 914 Indeterminate [...] 100 54 Metabolite of heroin 55 Lortab, [place], Vicodin; Also a very minor metabolite of [...] developed and its performance characteristics determined by [facility] in a manner consistent with CLIA requirements. This test has not been cleared or approved by the U.S. Food and Drug Administration. Test Performed by: [facility] [address] [place] [address] Procedures Date Code Description Status 05/08/2018 96513 Admin Of Inj Completed Encounters Type Date Location Provider Dx Diagnosis Office Visit 06/05/2018 [facility] Kev Recinos MD G89.4 Chronic pain 1:40p Medicine - [address] F33.9 Major depressive disorder, recurrent, unspecified G43.109 Migraine with aura, not intractable, w/o status migrainosus Office Visit 05/08/2018 3:20p Richard Recinos G43.101 Migraine with Medicine - MD aura, not [address] intractable, with status migrainosus G44.41 Drug-induced headache, not elsewhere classified, intractable F33.1 Major depressive disorder, recurrent, moderate F43.12 Post-traumatic stress disorder, chronic Office Visit 04/13/2018 11:[facility] Owen Landon, G43.819 Other migraine, [facility] intractable, without status migrainosus G44.41 Drug-induced headache, not elsewhere classified, intractable F43.12 Post-traumatic stress disorder, chronic Office Visit 04/04/2018 [facility] [place] F43.12 Post-traumatic 2:40p [facility] Yuko, DO stress disorder, chronic G43.819 Other migraine, intractable, without status migrainosus G44.41 Drug-induced headache, not elsewhere classified, intractable Plan of Treatment Future Appointment(s):11/07/2018 9:00 am - Luis Carlson M.D. at [facility]07/26/2018 - Rebeka Khan N.SabrinaM25.50 Pain in unspecified jointNew Medication:Naproxen 125 mg/5ML - 10 ml bid prn painNew Labs :Nuclear AB ([place]) By Ifa Igg, Ordered: 07/26/18C Reactive Protein, Ordered: 07/11Lyme Disease PCR, Ordered: 07/26/18Tick-Borne Panel PCR Blood, Ordered: 07/11Rheumatoid Factor, Ordered: 07/26/18Cyclic Citrullinated Pep Igg, Ordered: 07/26/18Erythrocyte Sed Rate, Ordered: 07/26/18Vitamin D Total 25(Oh), Ordered: 07/26/18Syphillis Igg W/Reflex RPR, Ordered: 07/26/18GC/Chlamydia Amplified Rna , Ordered: 07/26/18Comments:To further evaluate your joint pain I am ordering a series of blood tests. These are to screen for inflammatory disorders and Lyme disease. I will touch base with your results.R60.0 Localized edemaComments:For your ankle swelling I suggest you elevate your legs, above the level of your heart. You may findicing them to also help.
--- OUTSIDE RECORDS SUMMARY | 2018-07-27 19:44 | XMS REPORT | Continuity of Care Document ---
:1985 External Reference #:[id number] Author Name Bren Aguillon Care Team Providers Name Role Phone Karolyn Recinos M.D. 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 Tablets 10mg 18tab take 1 [...] Result H/L Range Note Drug Abuse 06/28/2018 [facility] Urine Amphetamine Negative ng/ mL 1, 2 [address] [place] [address] [phone] Urine Barbiturates Negative ng/mL 3 Urine Benzodiazepines Negative ng/mL 4 Urine Cocaine Negative ng/mL 5 Urine Phencyclidine Negative ng/mL Cutoff: 25 Urine Tetrahydrocannabinol Negative ng/mL Cutoff: 50 6 Creatinine, Urine 116.6 mg/dL Specific [place] 1.013 pH 5.8 Oxidants Negative 7 Adulterants Comment Normal Codeine, Ur Not Detected ng/mL Cutoff: 25 8 Dpdboev-7-zwhx-glucuronide, Ur Not Detected ng/mL 9 Morphine, Ur Not Detected ng/mL Cutoff: 25 10 Klxxvdfd-2-naun-glucuronide, U Not Detected ng/mL 11 6-monoacetylmorphine, Ur Not Detected ng/mL Cutoff: 25 12 Hydrocodone, Ur Not Detected ng/mL Cutoff: 25 13 Norhydrocodone, Ur Not Detected ng/mL Cutoff: 25 14 Dihydrocodeine, Ur Not Detected ng/mL Cutoff: 25 15 Hydromorphone, Ur Not Detected ng/mL Cutoff: 25 16 Blipneaddydzd6cjjhlconbggenwk Not Detected ng/mL 17 Oxycodone, Ur Not Detected ng/mL Cutoff: 25 18 Noroxycodone, Ur Not Detected ng/mL Cutoff: 25 19 Oxymorphone, Ur Not Detected ng/mL Cutoff: 25 20 Twcgjodimdq-7-szlh-glucuronide Not Detected ng/mL 21 Noroxymorphone, Ur Not Detected ng/mL Cutoff: 25 22 Fentanyl, Ur Not Detected ng/mL Cutoff: 2 23 Norfentanyl, Ur Not Detected ng/mL Cutoff: 2 24 Meperidine, Ur Not Detected ng/mL Cutoff: 25 25 Normeperidine, Ur Not Detected ng/mL Cutoff: 25 26 Naloxone, Ur Not Detected ng/mL Cutoff: 25 27 Qsgdhvoh-7-qlho-glucuronide, U Not Detected ng/mL 28 Methadone, Ur [...] Ur Not Detected ng/mL Cutoff: 50 36 Uoaimgxjyy-ghcn-ayaopxsejbq, U Not Detected ng/mL 37 Buprenorphine, Ur Present ng/mL Abnormal Cutoff: 5 38 Norbuprenorphine, Ur Present ng/mL Abnormal Cutoff: 5 39 Norbuprenorphine glucuronide Present ng/mL Abnormal Cutoff: 20 40 Opioid Interpretation See Comment 41 Thyroid Panel 06/05/2018 [facility] Free T4 (Free 0.63 ng/dL N 0.61-1.[address] Thyroxine) [place] [address] [phone] Thyroxine 6.97 ?g/dL N 6.09-12.23 TSH (Thyroid Stim Horm) 0.93 mcIU/mL N 0.34-5.60 Laboratory test 06/05/2018 [facility] Vitamin B12 446 pg/mL N 180-914 [address] [place] [address] [phone] Liver Function 06/05/2018 [facility] Total Protein 7.1 g/dL N 6.4-8.[address] [place] [address] [phone] Albumin 4.6 g/dL N 3.2-5.2 Globulin 2.5 g/dL N 2-4 Albumin/Globulin Ratio 1.8 N 1-3 Total Bilirubin 0.20 mg/dL N 0.2-1.0 Direct Bilirubin 0.00 mg/dL Low 0.03-0.18 Alkaline Phosphatase 131 U/L High 34-104 Alt 13 U/L N 7-52 Ast 13 U/L N 13-39 Basic Metabolic Panel 06/05/2018 [facility] Sodium 143 mmol/L N 135-[address] [place] [address] [phone] Potassium 4.4 mmol/L N 3.5-5.0 Chloride 108 mmol/L N 101-111 Co2 Carbon Dioxide 27 mmol/L N 22-32 Anion Gap 8 mmol/L N 2-11 Glucose 94 mg/dL N 70-100 Blood Urea Nitrogen 24 mg/dL N 6-24 Creatinine 0.64 mg/dL N 0.51-0.95 BUN/Creatinine Ratio 37.5 High 8-20 Calcium 9.5 mg/dL N 8.6-10.3 Egfr Non- 106.2 >60 Egfr 128.5 >60 43 Drug Abuse 20 06/05/2018 [facility] Urine Amphetamine Negative ng/mL [address] [place] [address] [phone] Urine Barbiturates Negative ng/mL 45 Urine Benzodiazepines Negative ng/mL 46 Urine Cocaine Negative ng/mL 47 Urine Phencyclidine Negative ng/mL Cutoff: 25 Urine Tetrahydrocannabinol Negative ng/mL Cutoff: 50 48 Creatinine, Urine 137.7 mg/dL Specific [place] 1.021 pH 5.4 Oxidants Negative 49 Adulterants Comment Normal Codeine, Ur Not Detected ng/mL Cutoff: 25 50 Ekvaotv-6-oqce-glucuronide, Ur Not Detected ng/mL 51 Morphine, Ur Not Detected ng/mL Cutoff: 25 52 Jhzbdjul-4-fplo-glucuronide, U Not Detected ng/mL 53 6-monoacetylmorphine, Ur Not Detected ng/mL Cutoff: 25 54 Hydrocodone, Ur Not Detected ng/mL Cutoff: 25 55 Norhydrocodone, Ur Not Detected ng/mL Cutoff: 25 56 Dihydrocodeine, Ur Not Detected ng/mL Cutoff: 25 57 Hydromorphone, Ur Not Detected ng/mL Cutoff: 25 58 Kuyimvneatnbi4uywybibvmxpuxac Not Detected ng/mL 59 Oxycodone, Ur Not Detected ng/mL Cutoff: 25 60 Noroxycodone, Ur Not Detected ng/mL Cutoff: 25 61 Oxymorphone, Ur Not Detected ng/mL Cutoff: 25 62 Zcyxnqsiwui-7-vbrx-glucuronide Not Detected ng/mL 63 Noroxymorphone, Ur Not Detected ng/mL Cutoff: 25 64 Fentanyl, Ur Not Detected ng/mL Cutoff: 2 65 Norfentanyl, Ur Not Detected ng/mL Cutoff: 2 66 Meperidine, Ur Not Detected ng/mL Cutoff: 25 67 Normeperidine, Ur Not Detected ng/mL Cutoff: 25 68 Naloxone, Ur Not Detected ng/mL Cutoff: 25 69 Tjsxeqwr-1-txws-glucuronide, U Not Detected ng/mL 70 Methadone, Ur [...] Ur Not Detected ng/mL Cutoff: 50 78 Kntnumxbls-odak-jtpaftkgvro, U Not Detected ng/mL 79 Buprenorphine, Ur Not Detected ng/mL Cutoff: 5 80 Norbuprenorphine, Ur Not Detected ng/mL Cutoff: 5 81 Norbuprenorphine glucuronide Not Detected ng/mL Cutoff: 20 82 Opioid Interpretation See Comment 83 1 [id number] 2 REFERENCE VALUE Cutoff: 500 3 REFERENCE [...] 100 12 Metabolite of heroin 13 Lortab, [place], Vicodin; Also a very minor metabolite of [...] developed and its performance characteristics determined by [facility] in a manner consistent with CLIA requirements. This test has not been cleared or approved by the U.S. Food and Drug Administration. Test Performed by: [facility] [address] [place] [address] 42 Normal Range 180 to 914 Indeterminate [...] 100 54 Metabolite of heroin 55 Lortab, [place], Vicodin; Also a very minor metabolite of [...] developed and its performance characteristics determined by [facility] in a manner consistent with CLIA requirements. This test has not been cleared or approved by the U.S. Food and Drug Administration. Test Performed by: [facility] [address] [facility], [place] [address] Procedures Date Code Description Status 05/08/2018 59146 Admin Of Inj Completed Encounters Type Date Location Provider Dx Diagnosis Office Visit 06/05/2018 [facility] Karolyn Recinos MD G89.4 Chronic pain 1:40p Medicine - [address] F33.9 Major depressive disorder, recurrent, unspecified G43.109 Migraine with aura, not intractable, w/o status migrainosus Office Visit 05/08/2018 3:20p [facility] Karolyn Recinos, G43.101 Migraine with Medicine - MD aura, not [address] intractable, with status migrainosus G44.41 Drug-induced headache, not elsewhere classified, intractable F33.1 Major depressive disorder, recurrent, moderate F43.12 Post-traumatic stress disorder, chronic Office Visit 04/13/2018 11:20a [facility] Owen Landon, G43.819 Other migraine, [facility] intractable, without status migrainosus G44.41 Drug-induced headache, not elsewhere classified, intractable F43.12 Post-traumatic stress disorder, chronic Office Visit 04/04/2018 [facility] [place] F43.12 Post-traumatic 2:40p [facility] Yuko, DO stress disorder, chronic G43.819 Other migraine, intractable, without status migrainosus G44.41 Drug-induced headache, not elsewhere classified, intractable Plan of Treatment Future Appointment(s):07/14/2018 11:00 am - Karolyn Recinos MD at [facility] - Owbnfpzjd19/16/2019 9:00 am - Luis Carlson M.D. at [facility]06/28/2018 - Karolyn Recinos MDG43.109 Migraine with aura [...] unspecifiedComments:I encourage you to continue therapy at [facility] and have your therapist reach out to me with any concerns or updates. You would probably benefit from seeing a psychiatrist to discuss a trial of medication
--- NOTE | 2018-07-27 20:07 | ED ---
Complex/Multi-Sys Presentation - HPI Summary HPI Summary: This pt is a 32 y/o female presenting to [facility] for a medication refill. Pt reports she ran out of her Clonazepam yesterday. She states she takes her Clonazepam (1 mg) once a day sometimes twice a day. She notes she called her psychiatrist from [facility] this morning and left a message for a refill but didn't get a refill. Pt also states her psychiatrist is new and saw her for the first time 4 days ago. Pt currently reports feeling anxious , tightness in her chest, "irritable." She states she "needs help calming down. " Her medications include Buprenorphine. She reports she was supposed to start Lexapro but has not started it yet. - History Of Current Complaint Chief Complaint: EDMedicationRefill Time Seen by Provider: 07/27/18 19:56 Hx Obtained From: Patient Onset/Duration: Lasting Days - 1, Still Present Timing: Days - 1 Severity Currently: Moderate Location: Negative Aggravating Factor(s): nothing Alleviating Factor(s): nothing Associated Signs And Symptoms: Positive: Chest Pain, Other - POS: anxiety. Negative: Fever Related History: Other - dx anxiety - Allergies/Home Medications Allergies/Adverse Reactions: Allergies Allergy/AdvReac Type Severity Reaction Status Date / Time lamotrigine [From Lamictal] Allergy See Comment Verified 07/27/18 19:35 Home Medications: Home Medications Buprenorphine TAB* [Subutex TAB*] 8 mg SL DAILY 07/27/18 [History Confirmed 08/11] Escitalopram * [Lexapro 5 mg (NF)] 10 mg PO DAILY 07/27/18 [History Confirmed ] PMH/Surg Hx/FS Hx/Imm Hx Endocrine/Hematology History: Denies: Hx Diabetes Cardiovascular History: Denies: Hx Auto Implanted Cardiovert Defib Neurological History: Reports: Hx Headaches, Hx Migraine Psychiatric History: Reports: Hx Anxiety, Hx Depression - MDD , Hx Post Traumatic Stress Disorder - Surgical History Surgery Procedure, Year, and Place: PER PATIENT, NO PRIOR SURGERIES. Infectious Disease History: No Infectious Disease History: Denies: Traveled Outside the US in Last 30 Days - Family History Known Family History: Negative: Blood Disorder - Social History Alcohol Use: None Substance Use Type: Reports: Marijuana Smoking Status (MU): Light Every Day Tobacco Smoker Review of Systems Negative: Fever, Chills Positive: Chest Pain Genitourinary: Negative Musculoskeletal: Negative Psychological: Other - POS: irritable Positive: Anxious All Other Systems Reviewed And Are Negative: Yes Physical Exam - Summary Physical Exam Summary: VITAL SIGNS: Reviewed. GENERAL: Patient is a well-developed and nourished female who is lying comfortable in the stretcher. Patient is not in any acute respiratory distress. HEAD AND FACE: No signs of trauma. No ecchymosis, hematomas or skull depressions. No sinus tenderness. EYES: PERRLA, EOMI x 2, No injected conjunctiva, no nystagmus. EARS: Hearing grossly intact. Ear canals and tympanic membranes are within normal limits. MOUTH: Oropharynx within normal limits. NECK: Supple, trachea is midline, no adenopathy, no JVD, no carotid bruit, no c- spine tenderness, neck with full ROM. CHEST: Symmetric, no tenderness at palpation LUNGS: Clear to auscultation bilaterally. No wheezing or crackles. CVS: Regular rate and rhythm, S1 and S2 present, no murmurs or gallops appreciated. ABDOMEN: Soft, non-tender. No signs of distention. No rebound no guarding, and no masses palpated. Bowel sounds are normal. EXTREMITIES: FROM in all major joints, no edema, no cyanosis or clubbing. NEURO: Alert and oriented x 3. No acute neurological deficits. Speech is normal and follows commands. SKIN: Dry and warm Triage Information Reviewed: Yes Vital Signs On Initial Exam: Initial Vitals Temp Pulse Resp BP Pulse Ox 99.2 F 120 16 127/77 98 07/27/18 19:31 07/27/18 19:31 07/27/18 19:31 07/27/18 19:31 07/27/18 19:31 Vital Signs Reviewed: Yes Diagnostics - Vital Signs Vital Signs Temp Pulse Resp BP Pulse Ox 07/27/18 19:31 99.2 F 120 16 127/77 98 - Laboratory Lab Statement: Any lab studies that have been ordered have been reviewed, and results considered in the medical decision making process. Complex Multi-Symp Course/Dx Assessment/Plan: Pt is a 32 y/o female who presents to the ED for a medication refill. Pt reports she ran out of her Clonazepam yesterday. She states she takes her Clonazepam once a day sometimes twice a day. She notes she called her psychiatrist from [facility] this morning and left a message for a refill but didn't get a refill. In the ED course she was given a tab of Clonazepam. Pt is advised to call her psychiatrist first thing tomorrow for a prescription. She understands and agrees. She is instructed to return to the ED for any worsening or new symptoms. - Diagnoses Provider Diagnoses: Anxiety, Medication refill Discharge - Sign-Out/Discharge Documenting (check all that apply): Patient Departure - Discharge home Patient Received Moderate/Deep Sedation with Procedure: No - Discharge Plan Condition: Stable Disposition: HOME Patient Education Materials: Anxiety (ED), Medicine Refill (ED) Referrals: Karolyn Recinos MD [Primary Care Provider] - Additional Instructions: Please call your psychiatrist tomorrow. RETURN TO THE ED IMMEDIATELY FOR WORSENING OR CONCERNING SYMPTOMS. - Attestation Statements Document Initiated by Scribe: Yes Documenting Scribe: Dulce Chisholm Provider For Whom Scribe is Documenting (Include Credential): Abbey Wen MD Scribe Attestation: Dulce Courtney, scribed for Abbey Wen MD on 07/27/18 at 2009. Status of Scribe Document: Ready
[2018-07-27 20:15] VITALS: BP 113/78
== END | disposition home or self-care (01) ==
LOC: ED 19:29
DX: F41.9 Anxiety disorder, unspecified (principal); R07.89 Other chest pain; Z76.0 Encounter for issue of repeat prescription; Z88.8 Allergy status to other drugs, medicaments and biological substances; F17.200 Nicotine dependence, unspecified, uncomplicated
CPT/HCPCS: 99282; A9270-GY

== ENCOUNTER 2018-10-15 13:02 | Emergency (ER) | payer OTHER ==
--- NOTE | 2018-10-15 15:25 | ED ---
Headache - HPI Summary HPI Summary: A 33 y/o female presents to [facility] with a chief complaint of headache today. At triage she rated her pain as a 5/10 in severity. She says that she has a Hx of migraines and takes 8mg Buprenorphine TID. The patient was tearful in the room. When asked about SI she states that she is "sick of living like this" and feels like her "life is being dictated by pills and pain". She has a prescription for Clonazepam but does not take it. She does not have family around, as they live in [place]. She lives with her godmother's daughter and boyfriend. She has been seen at [facility]. She has previously been admitted to a psychiatric facility. - History Of Current Complaint Chief Complaint: EDHeadache Stated Complaint: HEADACHE/SHORT ON MEDS PER PT Time Seen by Provider: 10/15/18 14:39 Hx Obtained From: Patient Onset/Duration: Sudden Onset, Started hours ago, Still Present Initially Headache Was: Initial Pain Scale(0-10)= - 5 Currently Pain Is: Current Pain Scale(0-10)= - 5 Timing: Constant Character: Unable To Describe Location of Headache: Diffuse Aggravating Factor: Nothing Allevating Factors: Nothing Associated Signs And Symptoms: Other (Noted In Comments) - possible SI - Allergies/Home Medications Allergies/Adverse Reactions: Allergies Allergy/AdvReac Type Severity Reaction Status Date / Time lamotrigine [From Lamictal] Allergy See Comment Verified 10/15/18 13:13 Home Medications: Home Medications Aspirin/Acetaminophen/Caffeine [Excedrin Extra Strength Caplet] 4 each PO BID [History Confirmed 10/15/18] PMH/Surg Hx/FS Hx/Imm Hx Endocrine/Hematology History: Denies: Hx Diabetes Cardiovascular History: Denies: Hx Auto Implanted Cardiovert Defib Neurological History: Reports: Hx Headaches, Hx Migraine Psychiatric History: Reports: Hx Anxiety, Hx Depression - MDD , Hx Post Traumatic Stress Disorder - Surgical History Surgery Procedure, Year, and Place: PER PATIENT, NO PRIOR SURGERIES. Infectious Disease History: No Infectious Disease History: Denies: Traveled Outside the US in Last 30 Days - Family History Known Family History: Negative: Blood Disorder - Social History Alcohol Use: None Substance Use Type: Reports: Marijuana Smoking Status (MU): Light Every Day Tobacco Smoker Review of Systems Positive: Headache Positive: Other - positive: possible SI All Other Systems Reviewed And Are Negative: Yes Physical Exam - Summary Physical Exam Summary: GENERAL: Patient is a well-developed and nourished F who is lying comfortable in the stretcher. Patient is not in any acute respiratory distress. HEAD AND FACE: Normocephalic EYES: PERRLA, EOMI x 2. EARS: Hearing grossly intact. MOUTH: Oropharynx within normal limits. NECK: Supple, trachea is midline, no adenopathy, no JVD, no carotid bruit. CHEST: Symmetric, no tenderness at palpation LUNGS: Clear to auscultation bilaterally. No wheezing or crackles. CVS: Regular rate and rhythm, S1 and S2 present, no murmurs or gallops appreciated. ABDOMEN: Soft, non-tender. Bowel sounds are normal. No abnormal abdominal pulsations. EXTREMITIES: Full ROM in all major joints, no edema, no cyanosis or clubbing. NEURO: Alert and oriented x 3. No acute neurological deficits. Speech is normal and follows commands. SKIN: Dry and warm Psych: The patient was very tearful on exam, when asked about SI she avoided the question. Triage Information Reviewed: Yes Vital Signs On Initial Exam: Initial Vitals Temp Pulse Resp BP Pulse Ox 100.1 F 91 16 112/76 98 10/15/18 13:10 10/15/18 13:10 10/15/18 13:10 10/15/18 13:10 10/15/18 13:10 Vital Signs Reviewed: Yes Diagnostics - Vital Signs Vital Signs Temp Pulse Resp BP Pulse Ox 10/15/18 13:10 100.1 F 91 16 112/76 98 - Laboratory Result Diagrams: 10/15/18 15:19 10/15/18 15:19 Lab Statement: Any lab studies that have been ordered have been reviewed, and results considered in the medical decision making process. Headache Course/Dx - Course Course Of Treatment: A 33 y/o female presents to [facility] with a chief complaint of headache today. The physical exam revealed that the patient was very tearful on exam, when asked about SI she avoided the question. She says that she is sick and tired of living this way, but she has no plan. Bloodwork, chemistries, urines and toxicology obtained and the patient has been cleared for MHE. In the ED course the patient was given Subutex SL and Nicotine Gum PO. This patient will be signed out from Dr. Thompson to Dr. Wen upon shift change at 19:00 pending MHE. - Diagnoses Provider Diagnoses: Evaluation by psychiatric service required Discharge - Sign-Out/Discharge Documenting (check all that apply): Sign-Out Patient Signing out patient TO: Abbey Wen - pending MHE Patient Received Moderate/Deep Sedation with Procedure: No - Discharge Plan Condition: Stable Referrals: Karolyn Recinos MD [Primary Care Provider] - - Billing Disposition and Condition Condition: STABLE - Attestation Statements Document Initiated by Scribe: Yes Documenting Scribe: Navin Cueto Provider For Whom Scribe is Documenting (Include Credential): Colt Thompson MD Scribe Attestation: Navin Courtney scribed for Colt Thompson MD on 10/15/18 at 1827. Scribe Documentation Reviewed: Yes Provider Attestation: The documentation as recorded by the Navin garcia accurately reflects the service I personally performed and the decisions made by Patrick staley MD Status of Scribe Document: Viewed
[2018-10-15 15:35] LABS: Hematocrit 29 % (35-47); Hemoglobin 8.8 g/dL (12.0-16.0); Mean Corpuscular HGB Conc 30 g/dL (31-36); Mean Corpuscular Hemoglobin 19 pg (27-31); Mean Corpuscular Volume 64 fL (80-97); Mean Platelet Volume 8.3 fL (7.4-10.4); Platelet Count 305 10^3/uL (150-450); Red Blood Count 4.57 10^6 /uL (3.70-4.87); Red Cell Distribution Width 18 % (10-15); White Blood Count 3.6 10^3/uL (3.5-10.8)
[2018-10-15 15:45] LABS: ALT 8 U/L (7-52); AST 12 U/L (13-39); Albumin 4.1 g/dL (3.2-5.2); Albumin/Globulin Ratio 1.6 (1-3); Alkaline Phosphatase 65 U/L (34-104); Anion Gap 6 mmol/L (2-11); BUN/Creatinine Ratio 28.6 (8-20); Blood Urea Nitrogen 16 mg/dL (6-24); CO2 Carbon Dioxide 24 mmol/L (22-32); Calcium 9.2 mg/dL (8.6-10.3); Chloride 109 mmol/L (101-111); EGFR African American 149.1 (>60); EGFR Non-African American 123.2 (>60); Globulin 2.5 g/dL (2-4); Glucose 104 mg/dL (70-100); Potassium 4.2 mmol/L (3.5-5.0); Sodium 139 mmol/L (135-145); Total Protein 6.6 g/dL (6.4-8.9)
[2018-10-15 15:50] LABS: ABS Basophils 0.1 10^3/ul (0-0.2); ABS Eosinophils 0.1 10^3/ul (0-0.6); ABS Monocytes 0.3 10^3/ul (0-0.8); ABS Neutrophils 2.2 10^3/ul (1.5-7.7); Acetaminophen < 15 mcg/mL; Alcohol < 10 mg/dL (<10); Eosinophil % 1.8 %; Lymphocyte % 26.7 %; Nucleated Red Blood Cells % 0.1
[2018-10-15 15:59] LABS: Urine Appearance Clear; Urine Bilirubin Negative (Negative); Urine Blood Negative (Negative); Urine Color Straw; Urine Glucose Negative (Negative); Urine Ketones Negative (Negative); Urine Nitrite Negative (Negative); Urine Protein Negative (Negative); Urine Specific Gravity 1.013 (1.010-1.030); Urine Urobilinogen Negative (Negative)
[2018-10-15 16:04] LABS: TSH (Thyroid Stimulating Horm) 1.05 mcIU/mL (0.34-5.60)
[2018-10-15] MEDS ORDERED: Nicotine* 4MG (FRUIT FLAVOR) GUM PO PRN (16:16)
[2018-10-15 16:17] LABS: Urine Benzodiazepine Screen None Detected (None Detect); Urine Opiates Screen None Detected (None Detect)
--- NOTE | 2018-10-15 18:58 | ED ---
Progress - Progress Note Progress Note: This patient was initially going to be signed out but the psych department was able finish their evaluation during our shift. Per mental health bait tier, Dr. Linares has cleared the patient for discharge. Dx: PTSD, anxiety and major depressive disorder. The patient does not want to hurt herself at this time. She will be discharged and follow up with her PCP and psychiatrist. - Consult/PCP Time Called: 05:00 Course/Dx - Course Course Of Treatment: This patient was initially going to be signed out but the psych department was able finish their evaluation during our shift. Per mental health bait tier, Dr. Linares has cleared the patient for discharge. Dx: PTSD, anxiety and major depressive disorder. The patient does not want to hurt herself at this time. She will be discharged and follow up with her PCP and psychiatrist. - Diagnoses Provider Diagnoses: PTSD (post-traumatic stress disorder), Anxiety, Major depressive disorder - Provider Notifications Discussed Care Of Patient With: Sherman Linares Time Discussed With Above Provider: 18:58 Instructed by Provider To: Other - Per mental health bait tier, Dr. Linares has cleared the patient for discharge. Dx: PTSD, anxiety and major depressive disorder. Discharge - Sign-Out/Discharge Documenting (check all that apply): Patient Departure - DC Patient Received Moderate/Deep Sedation with Procedure: No - Discharge Plan Condition: Stable Disposition: HOME Referrals: Karolyn Recinos MD [Primary Care Provider] - - Billing Disposition and Condition Condition: STABLE Disposition: Home - Attestation Statements Document Initiated by Scribe: Yes Documenting Scribe: Navin Cueto Provider For Whom Erin is Documenting (Include Credential): Colt Thompson MD Scribe Attestation: INavin, scribed for Colt Thompson MD on 10/15/18 at 1859. Scribe Documentation Reviewed: Yes Provider Attestation: The documentation as recorded by the Navin garcia accurately reflects the service I personally performed and the decisions made by me, Patrick Thompson MD Status of Scribe Document: Viewed
[2018-10-15 19:28] VITALS: BP 107/83
[2018-10-16] MEDS ORDERED: Buprenorphine TAB* 2 MG TAB.SL SL ONE (14:46)
== END 2018-10-15 19:01 | disposition home or self-care (01) ==
LOC: ED 13:02
DX: F43.10 Post-traumatic stress disorder, unspecified (principal); F41.9 Anxiety disorder, unspecified; F32.9 Major depressive disorder, single episode, unspecified; F17.210 Nicotine dependence, cigarettes, uncomplicated; Z79.899 Other long term (current) drug therapy
CPT/HCPCS: 36415; 80053; 80307; 80320; 80329; 81003; 84443; 85025; 85060; 99284; G0480

== ENCOUNTER 2019-04-13 12:33 | Inpatient (IN) | payer SELFPAY ==
--- NOTE | 2019-04-13 13:11 | ED ---
Psychiatric Complaint - HPI Summary HPI Summary: This pt is a 33 y/o female presenting to [facility] c/o increased depression. Pt reports she does not want to be "here" anymore. She states "I'm so tired of being so fucking sad." Pt states she has had this feeling of depression and sadness for "years." Pt reports SI thoughts with a plan in the [place]. States "I always have a plan." Pt notes she has been trying to since she was 13 y/o. Denies any past suicide attempts. Denies any HI or hallucinations. Pt reports recent stress of having her health insurance denied 2 weeks ago. She states she does not have access to her therapist because she has no insurance. Pt has been off her medications for about 2 weeks now and has been off anti anxiety medications for more than 2 weeks now. Pt is tearful at bedside. PMHx: migraines, depression, anxiety. She admits to tobacco use but denies drug or alcohol use. Pt is currently unemployed, reports she was fired from her last job. Allergic to lamotrigine. Medications reviewed. Allergies noted. - History Of Current Complaint Chief Complaint: EDSuicidal Time Seen by Provider: 04/13/19 12:42 Hx Obtained From: Patient Onset/Duration: Lasting Weeks, Still Present Timing: Weeks Severity Currently: Severe Character: Depressed Aggravating Factor(s): Medication Non-compliance Alleviating Factor(s): Nothing - Allergies/Home Medications Allergies/Adverse Reactions: Allergies Allergy/AdvReac Type Severity Reaction Status Date / Time lamotrigine [From Lamictal] Allergy See Comment Verified 04/13/19 12:41 PMH/Surg Hx/FS Hx/Imm Hx Endocrine/Hematology History: Denies: Hx Diabetes Cardiovascular History: Denies: Hx Auto Implanted Cardiovert Defib Neurological History: Reports: Hx Headaches, Hx Migraine Psychiatric History: Reports: Hx Anxiety, Hx Depression - MDD , Hx Post Traumatic Stress Disorder Denies: Hx Eating Disorder, Hx of Violent Episodes Against Others - Surgical History Surgical History: None Surgery Procedure, Year, and Place: PER PATIENT, NO PRIOR SURGERIES. Infectious Disease History: No Infectious Disease History: Denies: Traveled Outside the US in Last 30 Days - Family History Known Family History: Negative: Blood Disorder - Social History Alcohol Use: None Substance Use Type: Reports: Marijuana Smoking Status (MU): Light Every Day Tobacco Smoker Review of Systems Negative: Fever, Chills Cardiovascular: Negative Respiratory: Negative Gastrointestinal: Negative Psychological: Other - POSITIVE: SI thoughts and plan Positive: Depressed. Negative: Other - NEGATIVE: HI, hallucinations All Other Systems Reviewed And Are Negative: Yes Physical Exam - Summary Physical Exam Summary: Constitutional: Well-developed, Well-nourished, Alert. (-) Distressed Skin: Warm, Dry HENT: Normocephalic; Atraumatic Eyes: Conjunctiva normal Neck: Musculoskeletal ROM normal neck. (-) JVD, (-) Stridor, (-) Tracheal deviation Cardio: Rhythm regular, rate normal, Heart sounds normal; Intact distal pulses; The pedal pulses are 2+ and symmetric. Radial pulses are 2+ and symmetric. (-) Murmur Pulmonary/Chest wall: Effort normal. (-) Respiratory distress, (-) Wheezes, (-) Rales Abd: Soft, (-) tenderness, (-) Distension, (-) Guarding, (-) Rebound Musculoskeletal: (-) Edema Lymph: (-) Cervical adenopathy Neuro: Alert, Oriented x3 Psych: Tearful Triage Information Reviewed: Yes Vital Signs On Initial Exam: Initial Vitals Temp Pulse Resp BP Pulse Ox 98.1 F 120 20 140/115 100 04/13/19 12:35 04/13/19 12:35 04/13/19 12:35 04/13/19 12:35 04/13/19 12:35 Vital Signs Reviewed: Yes Procedures - Sedation Patient Received Moderate/Deep Sedation with Procedure: No Diagnostics - Vital Signs Vital Signs Temp Pulse Resp BP Pulse Ox 04/13/19 12:35 98.1 F 120 20 140/115 100 - Laboratory Result Diagrams: 04/13/19 13:23 04/13/19 13:23 Lab Statement: Any lab studies that have been ordered have been reviewed, and results considered in the medical decision making process. Re-Evaluation - Re-Evaluation First Eval Re-Evaluation Time: 16:10 Comment: Deja, mental health management development specialist, reports patient will be admitted on a voluntary status. Course/Dx - Course Assessment/Plan: Pt is a 33 y/o female presenting to [facility] c/o increased depression. Pt was medically cleared. Patient had a mental health evaluation and her case was reviewed by Dr. Acuna, psychiatrist. Dr. Acuna will admit the patient on a voluntary status. Dx: depression. - Differential Dx/Clinical Impression Provider Diagnosis: Depression Discharge ED - Sign-Out/Discharge Documenting (check all that apply): Patient Departure - Admit to [facility] - Discharge Plan Condition: Stable Disposition: PSYCHIATRIC FACILITY[facility] Referrals: Karolyn Recinos MD [Primary Care Provider] - - Billing Disposition and Condition Condition: STABLE Disposition: Psychiatric Facility [facility] - Attestation Statements Document Initiated by Scribe: Yes Documenting Scribe: Dulce Chisholm Provider For Whom Neyibe is Documenting (Include Credential): Faisal Grissom MD Scribe Attestation: Dulce Courtney, scribed for Faisal Grissom MD on 04/13/19 at 1619. Scribe Documentation Reviewed: Yes Provider Attestation: The documentation as recorded by the Dulce garcia accurately reflects the service I personally performed and the decisions made by , Faisal Grissom MD Status of Scribe Document: Viewed
--- OUTSIDE RECORDS SUMMARY | 2019-04-13 13:14 | XMS REPORT | Continuity of Care Document ---
:1985 External Reference #:[id number] Author Name Shaye Orozco MD (transmitted by agent of provider Анна Song) Address [address] [place] [address] Care Team Providers Name Role Phone Karolyn Recinos M.D. - Family Medicine Care Team Information Auditor Medical Claims Problems Active Problems Provider Date Migraine with typical aura Rebeka Khan, N.PGilmer Onset: 07/26/2018 Chronic pain syndrome Rebeka Khan, N.P. Onset: 07/26/2018 Recurrent major depressive episodes Rebeka Khan, N.P. Onset: 07/26/2018 Iron deficiency anemia Owen Landon MD Onset: 10/17/2018 Social History Type Date Description Comments Sex Unknown Tobacco Use Start: Unknown Light tobacco smoker (10 or fewer cigarettes/day) Smoking Status Reviewed: 02/27/19 Light tobacco smoker (10 or fewer cigarettes/day) ETOH Use Has consumed alcohol in the past Tobacco Use Start: Unknown Light tobacco smoker 1 pack can last 3-4 (10 or fewer days cigarettes/day) Recreational Drug Use Former Drug User THC, illegally obtained opiates Exercise Type/Frequency Does not exercise Allergies, Adverse Reactions, Alerts Active Allergies Reaction Severity Comments Date Lamictal suicidal ideation, sudden onset. 04/04/2018 Medications Active Medications SIG Qnty Indications Ordering Date Provider Ensure Nutrition Shake 2 by mouth every 1Case Karolyn Recinos MD 02/01/2019 day Liquid Aimovig inject sq once a 3ml Luis S. 11/07/2018 70mg/ml Solution cary Carlson M.D. Auto-Inject Metoclopramide HCL Take 10mg twice 1000ml G43.109 Owen Landon MD 10/17/2018 5mg/5ML a day (with Solution meals Ferrous Gluconate 1 by mouth twice 60tabs D50.9 Owen Landon MD 10/17/2018 a day 324(37.5Fe) mg Tablets Buprenorphine HCL 1 tab sl every 60tabs G89.4 Karolyn Recinos MD 06/28/2018 8mg 12 hours as Tablets Sub needed for pain mdd 2 Clonazepam 1 tablet once a 30tabs Karolyn Recinos MD 1mg Tablets day as needed for anxiety Excedrin Extra Strength States she is Unknown taking 4 tabs [phone] Tablets once or twice a day History Medications Magnesium Oxide 1 by mouth once 30caps G43.109 Owen Landon MD 10/18/2018 - 400mg daily 10/24/2018 Capsules Magnesium Oxide 400 take 1 tab twice a 80units G43.109 Owen Landon MD 10/17 - day 10/18/2018 240mg Packet Sumatriptan-Naproxen Take up to twice a 42tabs G43.109 Owen Landon MD 10/17 - Sodium day for headache 10/24/2018 85-500mg Tablets relief. Buprenorphine 1-2 strips 9units Karolyn Recinos, 09/20/2018 - Hydrochloride/Naloxon sublingual twice a 10/18/2018 e Hydrochloride day x 3 days 8-2mg Film Medications Administered in Office Medication SIG Qnty Indications Ordering Provider Date No Injection Karolyn Recinos MD 05/08/2018 Injection Immunizations Description No Information Available Vital Signs Date Vital Result Comment 02/27/2019 1:08pm Height 65.5 inches 5'5.50" Weight 110.00 lb Heart Rate 85 /min BP Systolic 108 mmHg BP Diastolic 71 mmHg Body Temperature 98.3 F O2 % BldC Oximetry 100 % BMI (Body Mass Index) 18.0 kg/m2 02/13/2019 3:08pm Weight 112.38 lb jeans, sweatshirt, socks on Results Test Acquired Date Facility Test Result H/L Range Note Laboratory test 01/26/2019 [facility] Ferritin 18.3 ng/mL Normal 11-[address] [place] [address] [phone] Vitamin B12 358 pg/mL Normal 180-914 1 CBC Auto 01/26/2019 [facility] White Blood 4.1 10^3/uL Normal 3.5-10.[address] [place] [address] [phone] Red Blood Count 4.79 10^6/uL Normal 3.70-4.87 Hemoglobin 13.8 g/dL Normal 12.0-16.0 Hematocrit 42 % Normal 35-47 Mean Corpuscular Volume 87 fL Normal 80-97 Mean Corpuscular Hemoglobin 29 pg Normal 27-31 Mean Corpuscular HGB Conc 33 g/dL Normal 31-36 Red Cell Distribution Width 14 % Normal 10-15 Platelet Count 196 10^3/uL Normal 150-450 Mean Platelet Volume 8.8 fL Normal 7.4-10.4 Abs Neutrophils 2.3 10^3/uL Normal 1.5-7.7 Abs Lymphocytes 1.3 10^3/uL Normal 1.0-4.8 Abs Monocytes 0.3 10^3/uL Normal 0-0.8 Abs Eosinophils 0.1 10^3/uL Normal 0-0.6 Abs Basophils 0.0 10^3/uL Normal 0-0.2 Abs Nucleated RBC 0.0 10^3/uL Granulocyte % 57.6 % Lymphocyte % 33.1 % Monocyte % 6.7 % Eosinophil % 2.0 % Basophil % 0.6 % Nucleated Red Blood Cells % 0.2 CBC Auto 10/15/2018 [facility] White Blood 3.6 10^3/uL Normal 3.5-10.[address] [place] [address] [phone] Red Blood Count 4.57 10^6/uL Normal 3.70-4.87 Hemoglobin 8.8 g/dL Low 12.0-16.0 Hematocrit 29 % Low 35-47 Mean Corpuscular Volume 64 fL Low 80-97 Mean Corpuscular Hemoglobin 19 pg Low 27-31 Mean Corpuscular HGB Conc 30 g/dL Low 31-36 Red Cell Distribution Width 18 % High 10-15 Platelet Count 305 10^3/uL Normal 150-450 Mean Platelet Volume 8.3 fL Normal 7.4-10.4 Abs Neutrophils 2.2 10^3/uL Normal 1.5-7.7 Abs Lymphocytes 1.0 10^3/uL Normal 1.0-4.8 Abs Monocytes 0.3 10^3/uL Normal 0-0.8 Abs Eosinophils 0.1 10^3/uL Normal 0-0.6 Abs Basophils 0.1 10^3/uL Normal 0-0.2 Abs Nucleated RBC 0.0 10^3/uL Granulocyte % 60.7 % Lymphocyte % 26.7 % Monocyte % 9.4 % Eosinophil % 1.8 % Basophil % 1.4 % Nucleated Red Blood Cells % 0.1 Cell Morphology 10/15/2018 [facility] Hypochromasia 2+ [address] [place] [address] [phone] Anisocytosis 1+ Comp Metabolic 10/15/2018 [facility] Sodium 139 mmol/L Normal 135-[address] [place] [address] [phone] Potassium 4.2 mmol/L Normal 3.5-5.0 Chloride 109 mmol/L Normal 101-111 Co2 Carbon Dioxide 24 mmol/L Normal 22-32 Anion Gap 6 mmol/L Normal 2-11 Glucose 104 mg/dL High 70-100 Blood Urea Nitrogen 16 mg/dL Normal 6-24 Creatinine 0.56 mg/dL Normal 0.51-0.95 BUN/Creatinine Ratio 28.6 High 8-20 Calcium 9.2 mg/dL Normal 8.6-10.3 Total Protein 6.6 g/dL Normal 6.4-8.9 Albumin 4.1 g/dL Normal 3.2-5.2 Globulin 2.5 g/dL Normal 2-4 Albumin/Globulin Ratio 1.6 Normal 1-3 Total Bilirubin 0.20 mg/dL Normal 0.2-1.0 Alkaline Phosphatase 65 U/L Normal 34-104 Alt 8 U/L Normal 7-52 Ast 12 U/L Low 13-39 Egfr Non- 123.2 >60 Egfr 149.1 >60 2 Laboratory test 10/15/2018 [facility] Acetaminophen < 15 g/mL 3 finding [address] [place] [address] [phone] Alcohol < 10 mg/dL Normal <10 Salicylate 5.00 mg/dL <30 TSH (Thyroid Stim Horm) 1.05 mcIU/mL Normal 0.34-5.60 Urinalysis Profile 10/15/2018 [facility] Urine Color Straw [address] [place] [address] [phone] Urine Appearance Clear Urine Specific [place] 1.013 Normal 1.010-1.030 Urine pH 5.0 Normal 5-9 Urine Urobilinogen Negative Negative Urine Ketones Negative Negative Urine Protein Negative Negative Urine Leukocytes Negative Negative Urine Blood Negative Negative Urine Nitrite Negative Negative Urine Bilirubin Negative Negative Urine Glucose Negative Negative Urine Drug 10/15/2018 [facility] Urine None Detected None Detect SCR ED & [address] [place] [address] Screen [phone] Urine Barbiturates Screen None Detected None Detect Urine Benzodiazepine Screen None Detected None Detect Urine Cannabinoids Screen None Detected None Detect Urine Cocaine Screen None Detected None Detect Urine Opiates Screen None Detected None Detect Urine Phencyclidine Screen None Detected None Detect 4 Laboratory test 10/15/2018 [facility] Pathologist Review (SEE NOTE) [address] [place] [address] [phone] 1 Normal Range 180 to 914 Indeterminate Range 145 to 180 Deficient Range <145 2 Because ethnic data is not always readily [...] 15-29 5 Kidney failure <15 (or dialysis) 3 Therapeutic concentration: <50 ug/mL Toxic concentration: >120 ug/mL 4 The urine specimen was tested at the listed cutoffs: Drug class test level (ng/mL) Amphetamines 500 Barbiturates 200 Benzodiazepine metabolites 200 Cocaine metabolites 150 Cannabinoids 50 Opiates 300 Pcp 25 Specimen was received without chain of custody. Results should be used for medical purposes only. 5 Hypochromic, microcytic anemia with red cell indices suggestive of iron deficiency. Additional studies as clinically warranted. Reviewed by Dr. Acosta Procedures Description No Information Available Medical Devices Description No Information Available Encounters Type Date Location Provider Dx Diagnosis Office Visit 12/19/2018 [facility] Internal Karolyn Recinos MD G43.009 Migraine w/o aura, 4:20p Medicine - Ccmob not intractable, w/o status migrainosus F33.9 Major depressive disorder, recurrent, unspecified D64.9 Anemia, unspecified Office Visit 11/07/2018 Laura Garza G43.009 Migraine w/o aura, 9:00a Micheal Carlson M.D. 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 Office Visit 10/25/2018 4:00p [facility] Internal Karolyn Recinos, G43.109 Migraine with Medicine - MD aura, not Ccmob intractable, w/o status migrainosus D50.9 Iron deficiency anemia, unspecified F50.9 Eating disorder, unspecified Office Visit 10/17/2018 3:00p [facility] Internal Owen Landon, G43.109 Migraine with aura, Medicine - MD not intractable, [address] w/o status migrainosus D50.9 Iron deficiency anemia, unspecified Assessments Date Code Description Provider 02/27/2019 Z00.00 Encounter for general adult medical Shaye Orozco MD examination without abnormal findings 02/27/2019 G43.009 Migraine without aura, not intractable, Shaye Orozco MD without status migra 02/27/2019 F50.9 Eating disorder, unspecified Shaye Orozco MD 02/27/2019 F33.9 Major depressive disorder, recurrent, Shaye Orozco MD unspecified 12/19/2018 G43.009 Migraine without aura, not intractable, Karolyn Recinos MD without status migra 12/19/2018 F33.9 Major depressive disorder, recurrent, Karolyn Recinos MD unspecified 12/19/2018 D64.9 Anemia, unspecified Karolyn Recinos MD 11/07/2018 G43.009 Migraine without aura, not intractable, Luis Carlson M.D. without status migra 11/07/2018 F33.9 Major depressive disorder, recurrent, Luis Carlson M.D. unspecified 11/07/2018 Z79.891 [facility] (current) use of opiate analgesic Luis Carlson M.D. 10/25/2018 G43.109 Migraine with aura, not intractable, Karolyn Recinos MD without status migraino 10/25/2018 D50.9 Iron deficiency anemia, unspecified Karolyn Recinos MD 10/25/2018 F50.9 Eating disorder, unspecified Karolyn Recinos MD 10/17/2018 G43.109 Migraine with aura, not intractable, Owen Landon MD without status migraino 10/17/2018 D50.9 Iron deficiency anemia, unspecified Owen Landon MD Plan of Treatment 02/27/2019 - Shaye Orozco MDZ00.00 Encounter for general adult medical examination without abnormal findingsComments:Please have lipid panel done todayHave java front end web developer print out the form from January 2019Return to office in 4 months for follow upG43.009 Migraine without aura, not intractable, without status scfwqJ48.9 Eating disorder, nweyawygmdfX33.9 Major depressive disorder, recurrent, unspecified Functional Status Description No Information Available Mental Status Description No Information Available Referrals Refer to Dr Reason for Referral Status Appt Date Nutrition Clinic [facility] Not scheduled yet 02/13/19 No appt yet Sent 02/23/19 [address] [place] [address] [phone] Kati Hutchinson LMSW pt with severe PTSD, might benefit from Scheduled 12/[address] [place] [address] [place] [address] [phone] Nutrition Clinic [facility] pt with chronic disordered eating, needs Sent help with nutrition Called referral office, no appt made, letter sent 12/15 [address] [place] [address] [phone] Juancarlos Kong MD pt with past hx of substance abuse, chronic Sent migraines and overuse headaches [address] [place] [address] [phone] Juancarlos Kong MD Hx of opioid use/abuse for chronic headaches. Sent [address] [place] [address] [phone]
[2019-04-13 13:28] LABS: Hematocrit 38 % (35-47); Mean Corpuscular HGB Conc 34 g/dL (31-36); Mean Corpuscular Hemoglobin 32 pg (27-31); Mean Corpuscular Volume 93 fL (80-97); Mean Platelet Volume 7.3 fL (7.4-10.4); Platelet Count 256 10^3/uL (150-450); Red Blood Count 4.08 10^6 /uL (3.70-4.87); Red Cell Distribution Width 13 % (10-15); White Blood Count 4.5 10^3/uL (3.5-10.8)
[2019-04-13 13:32] LABS: ABS Lymphocytes 0.4 10^3/ul (1.0-4.8); ABS Monocytes 0.2 10^3/ul (0-0.8); ABS Neutrophils 3.8 10^3/ul (1.5-7.7); Eosinophil % 0.2 %; Lymphocyte % 9.2 %
[2019-04-13 13:45] LABS: ALT 8 U/L (7-52); AST 12 U/L (13-39); Albumin 4.2 g/dL (3.2-5.2); Albumin/Globulin Ratio 1.6 (1-3); Alkaline Phosphatase 94 U/L (34-104); Anion Gap 9 mmol/L (2-11); BUN/Creatinine Ratio 31.1 (8-20); Blood Urea Nitrogen 19 mg/dL (6-24); CO2 Carbon Dioxide 25 mmol/L (22-32); Calcium 9.4 mg/dL (8.6-10.3); Chloride 108 mmol/L (101-111); EGFR African American 135.1 (>60); EGFR Non-African American 111.6 (>60); Globulin 2.6 g/dL (2-4); Glucose 112 mg/dL (70-100); Potassium 4.1 mmol/L (3.5-5.0); Sodium 142 mmol/L (135-145); Total Protein 6.8 g/dL (6.4-8.9)
[2019-04-13 13:52] LABS: HCG Pregnancy < 0.60 mIU/mL
[2019-04-13 14:26] LABS: Acetaminophen < 15 mcg/mL; Alcohol < 10 mg/dL (<10)
[2019-04-13 15:14] LABS: Urine Appearance Clear; Urine Bilirubin Negative (Negative); Urine Blood Negative (Negative); Urine Color Yellow; Urine Glucose Negative (Negative); Urine Ketones Negative (Negative); Urine Nitrite Negative (Negative); Urine Protein 1+(30 mg/dL) (Negative); Urine Specific Gravity 1.021 (1.010-1.030); Urine Urobilinogen Negative (Negative)
[2019-04-13 15:20] LABS: Urine Bacteria Absent (Absent); Urine Red Blood Cell Trace(0-2/hpf) (Absent); Urine Squamous Epithelial Cell Present (Absent); Urine White Blood Cell Trace(0-5/hpf) (Absent)
[2019-04-13 15:33] LABS: Urine Benzodiazepine Screen None Detected (None Detect); Urine Opiates Screen None Detected (None Detect)
[2019-04-13] MEDS ORDERED: Acetaminophen TAB* 325 MG PO PRN (16:45)
[2019-04-13] MEDS ORDERED: Al Hydrox/Mg Hydrox/Simet LIQ* 30 ML UDC PO PRN (16:45)
[2019-04-13] MEDS: ASA APAP CAFFEINE ES PO PRN ×2 (19:08→23:40)
[2019-04-13] MEDS: Buprenorphine TAB* 8 MG SL SCH (20:23)
[2019-04-13] MEDS: Nicotine Patch Removal NOTE PATCH OFF SCH (20:25)
[2019-04-13] MEDS: clonazePAM TAB(*) 1 MG PO PRN (23:40)
[2019-04-14] MEDS: ASA APAP CAFFEINE ES PO PRN ×2 (08:09→17:15)
[2019-04-14] MEDS: clonazePAM TAB(*) 1 MG PO PRN ×2 (08:09→17:15)
[2019-04-14] MEDS: Ferrous Gluconate TAB* 324 MG TAB PO SCH (08:10)
[2019-04-14] MEDS: Vitamin THERAPEUTIC TAB PO SCH (08:10)
[2019-04-14] MEDS ORDERED: Influenza VAC *QUAD* 2019-20* 0.5 ML SYRINGE IM ONE (09:00)
[2019-04-14] MEDS: Nicotine PATCH 7 MG/24 HR* PATCH TRANSDERM SCH (09:31)
[2019-04-14] MEDS: Buprenorphine TAB* 8 MG SL SCH ×2 (09:37→22:08)
[2019-04-14] MEDS: Amitriptyline TAB* 10 MG PO SCH (22:08)
--- NOTE | 2019-04-14 23:01 | HP ---
HISTORY AND PHYSICAL: DATE OF ADMISSION: IDENTIFYING DATA: Nettie is a 33-year-old single female, unknown to this facility, brought herself to the emergency room complaining of severe depression and suicidal ideation with a plan to walk into a jameson and freeze herself to . CHIEF COMPLAINT: "I thought about walking into the jameson and freeze, I will let the cold weather take care of it." HISTORY OF PRESENT ILLNESS: Nettie brought herself to the emergency department in the context of tamar cidal ideation and plan to walk into the frozen jameson to end her life. Reportedly, she has been havin g some psychosocial stressors and no access to her therapist or medications because of lack of insura nce. Nettie is originally from [place], moved to [place] about a year ago [facility] and [facility] daughter. A couple of weeks ago, she was told that she cannot live with them any longer b ecause she does not have any job or income and they cannot support her. At the same time, her insuran ce and she could not see her therapist or continue to take her medications. She states her d epressive symptoms got worse and anxiety and worries were too intense. She decided to end her life. However, at the end, she decided to come to the emergency room for some help. This is probably one of her 5 psychiatric hospitalizations. During the assessment other than reporting of feeling sad, de pressed, anxious, helpless, and workless, she denied any manic or hypomanic symptoms, also denied any psychotic symptoms. PAST PSYCHIATRIC HISTORY: Remarkable for at least 4 prior psychotic hospitalizations beginning at ag e 12 or 13, most of her hospitalizations were out of [place], either in [place] or [place]. Her h ospitalizations started in the context of her being severely depressed, angry, violent towards her mo ther or at school, cutting herself, which her mother could not manage because of her own mental healt h issues and not being available because of her own hospitalizations. Besides her 4 prior psychiatric hospitalizations, she also spent some 5 months' time in an RTF, which was very traumatizing. She wa s taken back by her mother who could not manage her, and she went to live with her uncle where she ma y have gone through some psychological trauma also. Nettie reports that she was tried on almost ever y antidepressants, most of them either did not work or had severe side effects. At this time, she is not taking any psychotropic medications. PAST MEDICAL HISTORY: She has a history of severe migraine headaches since age 12 or 13, otherwise s he appears to be physically healthy and is not in any physical distress at this time. ALLERGIES: She had severe allergy to LAMICTAL with rash. SUBSTANCE ABUSE HISTORY: Nettie reports that she has experimented with drugs but never got hooked up with any, and her UDS was negative for all street drugs and alcohol. FAMILY PSYCHIATRIC HISTORY: She is the only child of her mother who suffered from bipolar disorder a nd was in and out of hospital. She met with her father 1 time only when she was 10 years old, and he was never involved in her life. PERSONAL AND SOCIAL HISTORY: Nettie reports that she has a couple of years of college education and obtained an associate degree in technology. 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 She has been staying with her godmother and later with the godmother's daughter. At this time , she has nowhere to go because they gave her a notice that she has to move out and find her own plac e. She is currently unemployed, homeless without any financial or psychosocial support system in the area. PHYSICAL EXAMINATION GENERAL: Nettie is average height, thin-framed, healthy appearing female, who is not in an y physical distress at the time of examination. Review of labs and vitals were all unremarkable. HEENT: Her head is atraumatic, normocephalic. Eyes: PERRLA. EOMI x2. Clear Sclerae. Reactive pu pils. Ears: Ear canals clean with intact tympanic membranes. NECK: Supple with midline trachea. No lymphadenopathy or thyromegaly. CHEST: Equal air entry bilaterally. No wheezing or crepitations. CARDIOVASCULAR: Heart sounds normal. S1 and S2 only. No murmurs, gallops, or rubs. ABDOMEN: Flat, soft, nontender. No organomegaly. Bowel sounds positive in all quadrants. BREASTS: Deferred. GENITOURINARY: Deferred. MUSCULOSKELETAL: Fairly well developed. Joint movements are within normal limits. NEUROLOGIC: No sensory deficits. Cranial nerves II through XII are grossly intact. She is alert an d oriented to time, place, and person. MENTAL STATUS EXAMINATION: Nettie is wearing paper scrubs. Her personal hygiene and grooming are f air. Makes very poor eye contact. She has been tearful during the entire evaluation. Describes her mood as depressed and anxious. Observed affect appears to be sad and tearful. Her speech is soft w ith low volume but goal directed. Thought process is logical and goal directed. Thought content is devoid of any delusions and active suicidal ideation at this time. Her intelligence appears to be av erage as evidenced by her vocabulary, fund of knowledge, and educational background. Memory function s are intact in all spheres. Her insight and judgment appears to be fair to good. DIAGNOSTIC STUDIES/LAB DATA: Her CBC shows a WBC count of 4.5, hemoglobin 13, hematocrit 38, platele t count 256. Comprehensive metabolic profile shows a sodium level of 142, potassium 4.1, chloride 10 8, carbon dioxide 25, BUN 19, creatinine 0.61. Her GFR is 111.6. Urinalysis unremarkable. Urine dr ug screen negative for all street drugs and alcohol. SUMMARY: This is a 33-year-old female, unknown to this facility, who reports of at least 4 prior psy chiatric hospitalizations which started around age 12 or 13, also had lived in a residential [facility] facility as a child, who came to the emergency room because of severe depression with suicidal idea tion and a plan to drown herself into the frozen jameson. She has been off of her medications and was n ot going for any therapy because of lack of insurance in the area. She is originally from [place] . DIAGNOSTIC IMPRESSION: MENTAL HEALTH DIAGNOSES: 1. Major depressive disorder, recurrent, severe without psychotic features. 2. History of post-traumatic stress disorder. PHYSICAL HEALTH DIAGNOSIS: None. TREATMENT RECOMMENDATIONS: Nettie will remain hospitalized on behavioral science unit for safety and stabilization of acute symptoms. Her code status will remain full. Supportive milieu, individual a nd group therapy will be initiated. Different treatment options were discussed with Nettie. She is r eluctant to try anything because of prior experience with medications which either did not work or connor d terrible side effects. However, she is willing to try tricyclic antidepressant, and I have explain ed to her the risks, benefits, and alternatives to tricyclic and she is willing to give it a try. He nce I will start her on Elavil 10 mg to see how she tolerates it, which probably will help with her h istory of migraine as well. I will defer adjustment of doses or switching to different medications t o her assigned psychiatrist on the unit. Nettie might need intensive psychotherapeutic interventions because of traumatic experience as she was growing up and not having a father figure in her life. [id number]/[facility] #: [id number]
[2019-04-15] MEDS: Nicotine Patch Removal NOTE PATCH OFF SCH ×2 (00:05→21:33)
[2019-04-15] MEDS: Nicotine PATCH 7 MG/24 HR* PATCH TRANSDERM SCH (08:44)
[2019-04-15] MEDS: Vitamin THERAPEUTIC TAB PO SCH (08:45)
[2019-04-15] MEDS: Ferrous Gluconate TAB* 324 MG TAB PO SCH (08:45)
[2019-04-15] MEDS: ASA APAP CAFFEINE ES PO PRN ×2 (08:45→19:37)
[2019-04-15] MEDS: clonazePAM TAB(*) 1 MG PO PRN ×2 (08:45→19:36)
[2019-04-15] MEDS: Buprenorphine TAB* 8 MG SL SCH ×2 (10:39→21:31)
[2019-04-15] MEDS: Amitriptyline TAB* 10 MG PO SCH (21:30)
[2019-04-16] MEDS: Vitamin THERAPEUTIC TAB PO SCH (08:27)
[2019-04-16] MEDS: Ferrous Gluconate TAB* 324 MG TAB PO SCH (08:27)
[2019-04-16] MEDS: Buprenorphine TAB* 8 MG SL SCH ×3 (08:27→21:50)
[2019-04-16] MEDS: ASA APAP CAFFEINE ES PO PRN ×2 (08:28→17:47)
[2019-04-16] MEDS: Nicotine PATCH 7 MG/24 HR* PATCH TRANSDERM SCH (08:28)
[2019-04-16] MEDS: clonazePAM TAB(*) 1 MG PO PRN ×2 (08:31→17:50)
[2019-04-16] MEDS ORDERED: Nicotine* 2MG (FRUIT FLAVOR) GUM PO PRN (10:21)
--- NOTE | 2019-04-16 14:35 | PN ---
Subjective - Subjective Date of Service: 04/16/19 Service Type: 52806 Hosp care 25 min moderate complexity Subjective: Nettie is found playing cards with a peer. She is willing to meet and delay the game she started. She makes no eye contact throughout. Nettie is tearful throughout most of our interview. She curses the "spark" in her that will not be extinguished, and thus she is not yet by her own hand. She states she does not now want to . She also doesn't want to take medications as she's had such severe bad reactions in the past or medications that haven't worked. Still, she does not want to stop the 10 mg of Elavil that was started over the weekend. She states she would like to get housing, a job, health insurance as a way to improve her mood. Objective - General Observations Appearance: Disheveled Appears Stated Age: Yes Stature: Thin Posture: WNL Eye Contact: Avoidant Behavior/Activity: WNL - Interaction Observations Attitude Towards Examiner: Anxious, Defensive, Mistrustful Stated Mood: Dysphoric Affect: Flat Speech Pattern/Tone: Clear, Normal Volume Thought Process: Coherent Perception: WNL Thought Content: Preoccupation/Ruminations, Depressive Thought Process: Lethality: Suicidal Planning Hallucination Type: None Delusion Type: None - Cognitive Function Orientation: A&O x 4 Level of Consciousness: Awake, Alert, Appropriate Cognition: WNL Estimated Intelligence: Normal Insight: WNL Judgment Within Normal Limits: No Ability to Make Reasonable Decisions: Moderately Impaired - Medication Compliance Cooperative with Inpatient Medication Regimen: Yes - Group Participation Participates in Group Activities: Partial Assessment - Assessment Merits Inpatient Hospitalization: For Immediate Safety Inpatient DSM-V Dx: F33.1 Clinical Impression: Nettie is a 33-year-old white woman who comes to the hospital with thoughts of suicide related to her homelessness, lack of employment, and lack of health insurance. BSU: Problem List - Patient Problems (1) Major depressive disorder, recurrent episode with anxious distress Current Visit: Yes Status: Acute Code(s): F33.9 - MAJOR DEPRESSIVE DISORDER , RECURRENT, UNSPECIFIED SNOMED Code(s): 61370717 Plan - Plan Treatment Plan: Name: NETTIE NAIR Birthdate: 1985 [id number] Nettie had been started on Elavil and although she states she does not want to take medication, she also states she would not like to stop this one. She will meet with the insurance navigator. She is worried about her auto insurance. Continued Medication Management: Different Medication Medications: Current Medications Acetam/Aspirin/Caff/Calcium Glucon (Excedrin Extra Strength 250-250-65 Mg (Nf)) 2 tab PO BID PRN PRN Reason: PAIN - MODERATE Last Admin: 04/16/19 08:28 Dose: 2 tab Acetaminophen (Tylenol Tab*) 650 mg PO Q4H PRN PRN Reason: for pain; or Temp >101 F Al Hydrox/Mg Hydrox/Simethicone (Maalox Plus*) 30 ml PO Q4H PRN PRN Reason: INDIGESTION Amitriptyline HCl (Elavil Tab*) 10 mg PO BEDTIME [facility] Last Admin: 04/15/19 21:30 Dose: 10 mg Buprenorphine HCl (Subutex Tab*) 8 mg SL BID [facility] Last Admin: 04/16/19 10:41 Dose: 8 mg Clonazepam (Klonopin Tab(*)) 1 mg PO BID PRN PRN Reason: ANXIETY Last Admin: 04/16/19 08:31 Dose: 1 mg Ferrous Gluconate (Fergon Tab*) 324 mg PO DAILY [facility] Last Admin: 04/16/19 08:27 Dose: 324 mg Multivitamins (Theragran Tab*) 1 tab PO DAILY [facility] Last Admin: 04/16/19 08:27 Dose: 1 tab Nicotine (Nicotine Patch 7 Mg/24 Hr*) 1 patch TRANSDERM DAILY@0800 [facility] Last Admin: 04/16/19 08:28 Dose: 1 patch Nicotine Polacrilex (Nicotine Gum*) 2 mg PO Q2H PRN PRN Reason: CRAVING Pharmacy Profile Note (Nicotine Patch Removal Note*) 1 note PATCH OFF 2100 [facility] Last Admin: 04/15/19 21:33 Dose: 1 note - Discharge Plan Discharge Plan: Outpatient Follow Up Outpatient Program: [facility]
[2019-04-16] MEDS: Amitriptyline TAB* 10 MG PO SCH (21:47)
[2019-04-16] MEDS: Nicotine Patch Removal NOTE PATCH OFF SCH (22:48)
[2019-04-17] MEDS: clonazePAM TAB(*) 1 MG PO PRN ×2 (08:07→17:32)
[2019-04-17] MEDS: ASA APAP CAFFEINE ES PO PRN ×2 (08:07→17:33)
[2019-04-17] MEDS: Nicotine PATCH 7 MG/24 HR* PATCH TRANSDERM SCH (08:57)
[2019-04-17] MEDS: Buprenorphine TAB* 8 MG SL SCH ×2 (08:57→20:56)
[2019-04-17] MEDS: Ferrous Gluconate TAB* 324 MG TAB PO SCH (08:58)
[2019-04-17] MEDS: Vitamin THERAPEUTIC TAB PO SCH (08:58)
--- NOTE | 2019-04-17 14:00 | PN ---
Subjective - Subjective Date of Service: 04/17/19 Service Type: 70905 Hosp care 15 min low complexity Subjective: Nettie is worried about her car insurance, her godmother knowing where she is, and her boyfriend only having called her once. She has repeated these complaints for two days and made no progress. She was advised that she clearly requires more support outpatient (for example, she states she does not know how to shop for food) as well as being required to do some of the tasks she relies on other people for. She is aware that she is in charge of her own discharge date. Objective - General Observations Appearance: Disheveled Appears Stated Age: Yes Stature: Thin Posture: WNL Eye Contact: Avoidant Behavior/Activity: Slowed, Peculiar - Interaction Observations Attitude Towards Examiner: Cooperative, Anxious, Defensive, Manipulative Stated Mood: Dysphoric, Anxious Affect: Restricted Speech Pattern/Tone: Clear, Normal Volume Thought Process: Coherent Perception: WNL Thought Content: Preoccupation/Ruminations, Depressive Thought Process: Lethality: Passive Wish Hallucination Type: None Delusion Type: None - Cognitive Function Orientation: A&O x 4 Level of Consciousness: Awake, Alert, Appropriate Cognition: WNL Estimated Intelligence: Normal Insight: WNL Judgment Within Normal Limits: No Ability to Make Reasonable Decisions: Moderately Impaired - Medication Compliance Cooperative with Inpatient Medication Regimen: Yes - Group Participation Participates in Group Activities: Partial Assessment - Assessment Merits Inpatient Hospitalization: For Immediate Safety Inpatient DSM-V Dx: F33.1 Clinical Impression: Nettie is a 33-year-old white woman who comes to the hospital with thoughts of suicide related to her homelessness, lack of employment, and lack of health insurance. BSU: Problem List - Patient Problems (1) Major depressive disorder, recurrent episode with anxious distress Current Visit: Yes Status: Acute Code(s): F33.9 - MAJOR DEPRESSIVE DISORDER , RECURRENT, UNSPECIFIED SNOMED Code(s): 11731738 Plan - Plan Treatment Plan: Name: NETTIE NAIR Birthdate: 1985 [id number] 04/16/19 Nettie had been started on Elavil and although she states she does not want to take medication, she also states she would not like to stop this one. She will meet with the insurance navigator. She is worried about her auto insurance. 04/17/19 We plan to allow Nettie to make her own determination about discharge. I plan to offer her a SPOE packet to prepare her for services like [facility], which she would already like to join as she does better in a community residence , she states. Continued Medication Management: Different Medication Medications: Current Medications Acetam/Aspirin/Caff/Calcium Glucon (Excedrin Extra Strength 250-250-65 Mg (Nf)) 2 tab PO BID PRN PRN Reason: PAIN - MODERATE Last Admin: 04/17/19 08:07 Dose: 2 tab Acetaminophen (Tylenol Tab*) 650 mg PO Q4H PRN PRN Reason: for pain; or Temp >101 F Al Hydrox/Mg Hydrox/Simethicone (Maalox Plus*) 30 ml PO Q4H PRN PRN Reason: INDIGESTION Amitriptyline HCl (Elavil Tab*) 10 mg PO BEDTIME [facility] Last Admin: 04/16/19 21:47 Dose: 10 mg Buprenorphine HCl (Subutex Tab*) 8 mg SL BID [facility] Last Admin: 04/17/19 08:57 Dose: 8 mg Clonazepam (Klonopin Tab(*)) 1 mg PO BID PRN PRN Reason: ANXIETY Last Admin: 04/17/19 08:07 Dose: 1 mg Ferrous Gluconate (Fergon Tab*) 324 mg PO DAILY [facility] Last Admin: 04/17/19 08:58 Dose: 324 mg Multivitamins (Theragran Tab*) 1 tab PO DAILY [facility] Last Admin: 04/17/19 08:58 Dose: Not Given Nicotine (Nicotine Patch 7 Mg/24 Hr*) 1 patch TRANSDERM DAILY@0800 [facility] Last Admin: 04/17/19 08:57 Dose: 1 patch Nicotine Polacrilex (Nicotine Gum*) 2 mg PO Q2H PRN PRN Reason: CRAVING Pharmacy Profile Note (Nicotine Patch Removal Note*) 1 note PATCH OFF 2100 [facility] Last Admin: 04/16/19 22:48 Dose: 1 note
[2019-04-17] MEDS: Amitriptyline TAB* 10 MG PO SCH (20:28)
[2019-04-17] MEDS: Nicotine Patch Removal NOTE PATCH OFF SCH (20:32)
[2019-04-18] MEDS: Ferrous Gluconate TAB* 324 MG TAB PO SCH (08:14)
[2019-04-18] MEDS: ASA APAP CAFFEINE ES PO PRN ×2 (08:15→15:20)
[2019-04-18] MEDS: Vitamin THERAPEUTIC TAB PO SCH (08:15)
[2019-04-18] MEDS: clonazePAM TAB(*) 1 MG PO PRN ×2 (09:20→17:58)
[2019-04-18] MEDS: Buprenorphine TAB* 8 MG SL SCH ×2 (10:08→20:03)
[2019-04-18] MEDS: Nicotine PATCH 7 MG/24 HR* PATCH TRANSDERM SCH (10:45)
--- NOTE | 2019-04-18 19:20 | PN ---
Subjective - Subjective Date of Service: 04/18/19 Service Type: 58490 Hosp care 25 min moderate complexity Subjective: I don't see any change in Nettie's mood. She continues to report of depressed mood, lack of motivation and anhedonia. Denies SI, HI or psychosis. Says she is having side effects from Elavil but still wants to try longer. Objective - General Observations Appearance: Well Groomed Appears Stated Age: Yes Stature: Thin Posture: WNL Eye Contact: Avoidant Behavior/Activity: Slowed - Interaction Observations Attitude Towards Examiner: Cooperative Stated Mood: Dysphoric Affect: Blunted Speech Pattern/Tone: Clear, Appropriate, Quiet Volume Thought Process: Coherent, Goal Directed Perception: WNL Thought Content: WNL Hallucination Type: Denies Delusion Type: Denies - Cognitive Function Orientation: A&O x 4 Level of Consciousness: Awake, Alert, Appropriate Insight: WNL Judgment Within Normal Limits: No Ability to Make Reasonable Decisions: Moderately Impaired - Medication Compliance Cooperative with Inpatient Medication Regimen: Yes - Group Participation Participates in Group Activities: No Assessment - Assessment Merits Inpatient Hospitalization: For Immediate Safety, For Stabilization, Pending Safe DC Plan Inpatient DSM-V Dx: F33.1 Clinical Impression: Nettie is a 33-year-old white woman who comes to the hospital with thoughts of suicide related to her homelessness, lack of employment, and lack of health insurance. Plan - Plan Treatment Plan: Name: NETTIE NAIR Birthdate: 1985 [id number] 04/16/19 Nettie had been started on Elavil and although she states she does not want to take medication, she also states she would not like to stop this one. She will meet with the insurance navigator. She is worried about her auto insurance. 04/17/19 We plan to allow Nettie to make her own determination about discharge. I plan to offer her a SPOE packet to prepare her for services like [facility], which she would already like to join as she does better in a community residence , she states. Continued Medication Management: Continue Outpt Medication Medications: Current Medications Acetam/Aspirin/Caff/Calcium Glucon (Excedrin Extra Strength 250-250-65 Mg (Nf)) 2 tab PO BID PRN PRN Reason: PAIN - MODERATE Last Admin: 04/18/19 15:20 Dose: 2 tab Acetaminophen (Tylenol Tab*) 650 mg PO Q4H PRN PRN Reason: for pain; or Temp >101 F Al Hydrox/Mg Hydrox/Simethicone (Maalox Plus*) 30 ml PO Q4H PRN PRN Reason: INDIGESTION Amitriptyline HCl (Elavil Tab*) 10 mg PO BEDTIME [facility] Last Admin: 04/17/19 20:28 Dose: 10 mg Buprenorphine HCl (Subutex Tab*) 8 mg SL BID [facility] Last Admin: 04/18/19 10:08 Dose: Not Given Clonazepam (Klonopin Tab(*)) 1 mg PO BID PRN PRN Reason: ANXIETY Last Admin: 04/18/19 17:58 Dose: 1 mg Ferrous Gluconate (Fergon Tab*) 324 mg PO DAILY [facility] Last Admin: 04/18/19 08:14 Dose: 324 mg Multivitamins (Theragran Tab*) 1 tab PO DAILY [facility] Last Admin: 04/18/19 08:15 Dose: Not Given Nicotine (Nicotine Patch 7 Mg/24 Hr*) 1 patch TRANSDERM DAILY@0800 [facility] Last Admin: 04/18/19 10:45 Dose: Not Given Nicotine Polacrilex (Nicotine Gum*) 2 mg PO Q2H PRN PRN Reason: CRAVING Pharmacy Profile Note (Nicotine Patch Removal Note*) 1 note PATCH OFF 2100 [facility] Last Admin: 04/17/19 20:32 Dose: 1 note - Discharge Plan Discharge Plan: Outpatient Follow Up Outpatient Program: [facility]
[2019-04-18] MEDS: Amitriptyline TAB* 10 MG PO SCH (20:04)
[2019-04-18] MEDS: Nicotine Patch Removal NOTE PATCH OFF SCH (21:26)
[2019-04-19] MEDS: ASA APAP CAFFEINE ES PO PRN (07:04)
[2019-04-19 09:00] VITALS: BP 104/65
[2019-04-19] MEDS: Vitamin THERAPEUTIC TAB PO SCH (09:00)
[2019-04-19] MEDS: Ferrous Gluconate TAB* 324 MG TAB PO SCH (09:02)
[2019-04-19] MEDS: clonazePAM TAB(*) 1 MG PO PRN (09:03)
[2019-04-19] MEDS: Buprenorphine TAB* 8 MG SL SCH (09:03)
[2019-04-19] MEDS: Nicotine PATCH 7 MG/24 HR* PATCH TRANSDERM SCH (09:04)
--- NOTE | 2019-04-23 12:35 | DS ---
DISCHARGE SUMMARY: DATE OF ADMISSION: 04/13/19 DATE OF DISCHARGE: 04/19/19 PROVIDER: Prisca Wilson NP in Psychiatry. SUPERVISING PHYSICIAN: John Leone MD* (dictated by Prisca Wilson NP). DIAGNOSES: 1. Major depressive disorder. 2. Opioid dependence. CONDITION AT THE TIME OF DISCHARGE: Improved, psychiatrically cleared, stable, participated in groups, was social with peers. She is agreeable to discharge. She has done well here psychiatrically. She will be attending [facility]. MENTAL STATUS EXAM: At the time of discharge, Nettie is calm, cooperative, makes good contact. She is alert and oriented x4. Grooming is adequate. Her speech pace is slow. Her thought processes are logical. She is not psychotic, not delusional. She denies AH, VH, SI, and HI. Insight and judgement are fair. She is willing to follow up and she is urged to see a therapist. DISCHARGE INSTRUCTIONS TO THE PATIENT: A. Medications: 1. Amitriptyline 10 mg at bedtime. 2. Excedrin 4 tabs b.i.d. p.r.n. pain, moderate. 3. Subutex 8 mg b.i.d. 4. Clonazepam 1 mg b.i.d. p.r.n. anxiety. We prescribed Elavil 10 mg. We left the other medications to her primary prescriber to attend to. B. Diet is regular. C. Activities as tolerated. She is a nonsmoker. There are no studies pending at the time of discharge. D. Followup care: She has appointments at [facility], but it is not possible to make an appointment today as the agency is closed on the day of discharge. She also has an appointment on at 8:[address] Orozco that is at [facility]. E. Disposition: She states she is going back to stay with her godmother. F. Substance abuse followup is not indicated. HOSPITAL COURSE: Part A: Chief complaint: "I thought about walking into the [place] and freezing. I would let the cold weather take care of it." Nettie brought herself to the emergency department in the context of suicidal ideation with a plan to walk into the frozen j[place] to end her life. Reportedly, she has been having some psychosocial stressors and no access to her therapist or medications because of lack of insurance. Nettie is originally from [place], moved to [place] about a year ago to live with her godmother and her daughter. Couple of weeks ago, she was told that she cannot live with them any longer because she does not have a job or income and they cannot support her. At the same time, her insurance and she could not see her therapist or continue to take her medications. She states her depressive symptoms got worse and anxiety and worries were too intense. She decided to end her life; however , at the end, she decided to come to the emergency room for some help. This is probably 1 of her 5 or 6 hospitalizations in Psychiatry. During the assessment , other than reporting feeling sad, depressed, anxious, helpless, and worthless , she denied any manic or hypomanic symptoms. She also denied any psychotic symptoms. Part B: Psychiatric treatment was rendered. Nettie was admitted to the adult behavioral unit and placed on 15-minute checks for safety. She was safe on all checks. She did well on the unit and went to some groups. She interacted with peers well. We added amitriptyline 10 mg to aid with sleep, depression, and headache pain. She would not agree to an increase to even 25 mg as she states that she has had a really hard time tolerating medications in the past. One positive thing that did come out of this hospitalization is that she got health insurance using the Medicaid navigator, which would solve several of the stressors that she had coming in. Nettie began displaying some symptoms of eating disorders including restricting behaviors. She was worried that she would gain weight too quickly and that she would eat too much since there was food available here most of the time. We did not focus on this as her primary concern was suicidal thoughts. She declined to have a nutrition consult. She is improved. Her sleep is better. She is not as "sad" as she was, although she is not happy either. Her appetite is better, although she declines to eat some of the time. Her suicidal ideation has been reduced or gone away. She is future oriented and ready to return to her family. PRISCA WILSON, SHAWN [id number]/[facility] #: [id number] GALA
== END 2019-04-19 13:25 | disposition home or self-care (01) | DRG 885 ==
LOC: ED 12:33 → BSU 16:21
PROVIDERS: ADMIT Psychiatry & Neurology Psychiatry; ATTEND Psychiatry & Neurology Psychiatry
DX: F33.2 Major depressive disorder, recurrent severe without psychotic features (principal); R45.851 Suicidal ideations; G43.909 Migraine, unspecified, not intractable, without status migrainosus; F43.10 Post-traumatic stress disorder, unspecified; F41.9 Anxiety disorder, unspecified; F17.200 Nicotine dependence, unspecified, uncomplicated; Z79.899 Other long term (current) drug therapy; Z23 Encounter for immunization; Z88.8 Allergy status to other drugs, medicaments and biological substances; Z59.0 Homelessness; Z56.0 Unemployment, unspecified
CPT/HCPCS: 36415; 80053; 80307; 80320; 80329; 81003; 81015; 84702; 85025; 87086; 90686; 99222; 99231; 99232; 99238; 99285; A9270-GY; G0480

== ENCOUNTER 2019-04-25 11:05 | Emergency (ER) | payer MEDICAID ==
--- OUTSIDE RECORDS SUMMARY | 2019-04-25 11:18 | XMS REPORT | Continuity of Care Document ---
:1985 External Reference #:[id number] Author Name Shaye Orozco MD (transmitted by agent of provider Patricia Dobson) Address [address] [place] [address] Care Team Providers Name Role Phone Karolyn Recinos M.D. - Family Medicine Care Team Information Block Sorter Problems Active Problems Provider Date Migraine with typical aura Rebeka Khan, N.PGilmer Onset: 07/26/2018 Chronic pain syndrome Rebeka Khan, N.PGilmer Onset: 07/26/2018 Recurrent major depressive episodes Rebeka Khan, N.PGilmer Onset: 07/26/2018 Iron deficiency anemia Owen Landon MD Onset: 10/17/2018 Social History Type Date Description Comments Sex Unknown Tobacco Use Start: Unknown Light tobacco smoker (10 or fewer cigarettes/day) Smoking Status Reviewed: 04/24/19 Light tobacco smoker (10 or fewer cigarettes/day) [...] Solution cary Carlson M.D. Auto-Inject Metoclopramide HCL take 10mg twice 1000ml G43.109 Gerardo Benson NP 2018 5mg/5ML a day (with Solution meals Ferrous Gluconate take 1 tablet by 60tabs D50.9 Rebeka Hunterpedro, 10/17/2018 324(38Fe) mouth twice a N.P. mg Tablets day Buprenorphine HCL 1 tab sl every 60tabs G89.4 Rebeka Hunterpedro, 06/28/2018 8mg 12 hours as N.P. Tablets Sub needed for pain mdd 2 Clonazepam 1 tablet by 45tabs Rebeka Bill, 1mg Tablets mouth every 12 N.P. hours as needed for anxiety Excedrin Extra Strength States she is Unknown taking 4 tabs [phone] Tablets once or twice a day Amatriptaline 10mg at hs Unknown Medications Administered in Office Medication SIG Qnty Indications Ordering Provider Date No Injection Karolyn Recinos MD 05/08/2018 Injection Immunizations Description No Information Available Vital Signs Date Vital Result Comment 04/24/2019 8:20am Height 65.5 inches 5'5.50" Weight 118.00 lb Heart Rate 104 /min BP Systolic Sitting 107 mmHg BP Diastolic Sitting 78 mmHg O2 % BldC Oximetry 98 % BMI (Body Mass Index) 19.3 kg/m2 02/27/2019 1:08pm Height 65.5 inches 5'5.50" Weight 110.00 lb Heart Rate 85 /min BP Systolic 108 mmHg BP Diastolic 71 mmHg Body Temperature 98.3 F O2 % BldC Oximetry 100 % BMI (Body Mass Index) 18.0 kg/m2 Results Test Acquired Date Facility Test Result H/L Range Note Urinalysis Profile 04/13/2019 [facility] Urine Color Yellow [address] [place] [address] [phone] Urine Appearance Clear Urine Specific [place] 1.021 Normal 1.010-1.030 Urine pH 7.0 Normal 5-9 Urine Urobilinogen Negative Negative Urine Ketones Negative Negative Urine Protein 1+(30 mg/dL) Abnormal Negative Urine Leukocytes Negative Negative Urine Blood Negative Negative * * Abnormal Negative 1 Urine Nitrite Negative Negative Urine Bilirubin Negative Negative Urine Glucose Negative Negative Urine White Blood Cell Trace(0-5/hpf) Absent Urine Red Blood Cell Trace(0-2/hpf) Absent Urine Bacteria Absent Absent Urine Squamous Epithelial Cell Present Abnormal Absent Urine Culture And 04/13/2019 [facility] Urine SEE RESULT [address] [place] [address] [phone] CBC Auto Diff 04/13/2019 [facility] White Blood 4.5 10^3/uL Normal 3.5-[address] Count 0.8 [place] [address] [phone] Red Blood Count 4.08 10^6/uL Normal 3.70-4.87 Hemoglobin 13.0 g/dL Normal 12.0-16.0 Hematocrit 38 % Normal 35-47 Mean Corpuscular Volume 93 fL Normal 80-97 Mean Corpuscular Hemoglobin 32 pg High 27-31 Mean Corpuscular HGB Conc 34 g/dL Normal 31-36 Red Cell Distribution Width 13 % Normal 10-15 Platelet Count 256 10^3/uL Normal 150-450 Mean Platelet Volume 7.3 fL Low 7.4-10.4 Abs Neutrophils 3.8 10^3/uL Normal 1.5-7.7 Abs Lymphocytes 0.4 10^3/uL Low 1.0-4.8 Abs Monocytes 0.2 10^3/uL Normal 0-0.8 Abs Eosinophils 0.0 10^3/uL Normal 0-0.6 Abs Basophils 0.0 10^3/uL Normal 0-0.2 Abs Nucleated RBC 0.0 10^3/uL Granulocyte % 85.6 % Lymphocyte % 9.2 % Monocyte % 4.4 % Eosinophil % 0.2 % Basophil % 0.6 % Nucleated Red Blood Cells % 0.0 Comp Metabolic 04/13/2019 [facility] Sodium 142 mmol/L Normal 135-[address] [place] [address] [phone] Potassium 4.1 mmol/L Normal 3.5-5.0 Chloride 108 mmol/L Normal 101-111 Co2 Carbon Dioxide 25 mmol/L Normal 22-32 Anion Gap 9 mmol/L Normal 2-11 Glucose 112 mg/dL High 70-100 Blood Urea Nitrogen 19 mg/dL Normal 6-24 Creatinine 0.61 mg/dL Normal 0.51-0.95 BUN/Creatinine Ratio 31.1 High 8-20 Calcium 9.4 mg/dL Normal 8.6-10.3 Total Protein 6.8 g/dL Normal 6.4-8.9 Albumin 4.2 g/dL Normal 3.2-5.2 Globulin 2.6 g/dL Normal 2-4 Albumin/Globulin Ratio 1.6 Normal 1-3 Total Bilirubin 0.20 mg/dL Normal 0.2-1.0 Alkaline Phosphatase 94 U/L Normal 34-104 Alt 8 U/L Normal 7-52 Ast 12 U/L Low 13-39 Egfr Non- 111.6 >60 Egfr 135.1 >60 3 Laboratory test 04/13/2019 [facility] HCG < 0.60 mIU/ mL 4 finding [address] [place] [address] [phone] Acetaminophen < 15 g/mL 5 Alcohol < 10 mg/dL Normal <10 Salicylate 8.70 mg/dL <30 Urine Drug 04/13/2019 [facility] Urine None Detected None Detect [facility] ED & [address] [facility] [place] [address] Screen [phone] Urine Barbiturates Screen None Detected None Detect Urine Benzodiazepine Screen None Detected None Detect Urine Cannabinoids Screen None Detected None Detect Urine Cocaine Screen None Detected None Detect Urine Opiates Screen None Detected None Detect Urine Phencyclidine Screen None Detected None Detect 6 Lipid Profile 02/27/2019 [facility] Triglycerides 79 mg/dL 7 (Trig/Chol/HDL) [address] [place], [place] [id number] [phone] Cholesterol 160 mg/dL 8 HDL Cholesterol 52.2 mg/dL 9 LDL Cholesterol 92 mg/dL 10 Laboratory test 01/26/2019 [facility] Ferritin 18.3 ng/mL Normal 11-307 finding [address] [place] [address] [phone] Vitamin B12 358 pg/mL Normal 180-914 11 CBC Auto 01/26/2019 [facility] White Blood 4.1 10^3/uL Normal 3.5-10.[address] [place] [address] [phone] Red Blood Count 4.79 10^6/uL Normal 3.70-4.87 [...] % Nucleated Red Blood Cells % 0.2 1 *Ascorbic acid is present which may interfere with detection of blood. 2 SEE RESULT BELOW Name: NETTIE BASILIO : [address]: Jeyson Acuna MD Acct: [id number] Unit: [id number] AGE: 33 Location: [facility] Re04/13/19 SEX: F Status: ADM IN SPEC: [id number] CYNDY: 04/13/19-8 [facility] DR: Faisal Grissom MD REQ: [id number] RECD: 04/13/19 STATUS: NELLY BLANCO DR: Karolyn Recinos MD _ SOURCE: URINE SPDESC: ORDERED: Urine Culture Procedure Result Reported Site Urine Culture Final 04/15/19- 0842 ML No Growth (<1,000 CFU/mL) * ML - Main Lab . END OF REPORT DEPARTMENT OF PATHOLOGY, [address] [place] [address] Adelfo Acosta M.D. Director [facility] # [id number] 3 Because ethnic data is not always readily [...] 15-29 5 Kidney failure <15 (or dialysis) 4 <5.0 Negative 5.0 - 25.0 Indeterminate (Repeat testing recommended after 72 hours) >25.0 Positive Perimenopausal women can display HCG levels of up to 20 mIU/mL 5 Therapeutic concentration: <50 ug/mL Toxic concentration: >120 ug/mL 6 The urine specimen was tested at the listed cutoffs: Drug class test level (ng/mL) Amphetamines 500 Barbiturates 200 Benzodiazepine metabolites 200 Cocaine metabolites 150 Cannabinoids 50 Opiates 300 Pcp 25 Specimen was received without chain of custody. Results should be used for medical purposes only. 7 Desirable: <150 Borderline High: 150-199 High: 200-499 Very High: >500 8 Desirable: <200 Borderline High: 200-239 High: >239 9 Low: <40 Desirable: 40-60 High: >60 10 Desirable: <100 Near Optimal: 100-129 Borderline High: 130-159 High: 160-189 Very High: >189 11 Normal Range 180 to 914 Indeterminate Range 145 to 180 Deficient Range <145 Procedures Description No Information Available Medical Devices Description No Information Available Encounters Type Date Location Provider Dx Diagnosis Office Visit 02/27/2019 [facility] Shaye Orozco, Z00.00 Encntr for general 1:00p Medicine - [facility] adult medical exam w/o abnormal findings G43.009 Migraine w/o aura, not intractable, w/o status migrainosus F50.9 Eating disorder, unspecified F33.9 Major depressive disorder, recurrent, unspecified Office Visit 12/19/2018 4:20p [facility] Karolyn Recinos, G43.009 Migraine w/o aura, Medicine - not intractable, [facility] w/o status migrainosus F33.9 Major depressive disorder, recurrent, unspecified D64.9 Anemia, unspecified Office Visit 11/07/2018 Laura Garza G43.009 Migraine w/o aura, 9:00a Neurologic Escobar Carlson not intractable, [facility] w/o status migrainosus F33.9 Major depressive disorder, recurrent, unspecified Z79.891 jail (current) use of opiate analgesic Office Visit 10/25/2018 4:00p [facility] Karolyn Recinos, G43.109 Migraine with Medicine - aura, not Ccmob intractable, w/o status migrainosus D50.9 Iron deficiency anemia, unspecified F50.9 Eating disorder, unspecified Assessments Date Code Description Provider 04/24/2019 F33.9 Major depressive disorder, recurrent, Shaye Orozco MD unspecified 04/24/2019 G43.009 Migraine without aura, not intractable, Shaye Orozco MD without status migra 04/24/2019 F50.9 Eating disorder, unspecified Shaye Orozco MD 02/27/2019 Z00.00 Encounter for general adult medical [...] recurrent, Luis Carlson M.D. unspecified 11/07/2018 Z79.891 jail (current) use of opiate analgesic Luis Carlson M.D. 10/25/2018 G43.109 Migraine with aura, not intractable, Karolyn Recinos MD without status migraino 10/25/2018 D50.9 Iron deficiency anemia, unspecified Karolyn Recinos MD 10/25/2018 F50.9 Eating disorder, unspecified Karolyn Recinos MD Plan of Treatment Future Appointment(s):05/03/2019 2:00 pm - [facility] Shaye Orozco MDF33.9 Major depressive disorder , recurrent, unspecifiedFollow up:1 weekG43.009 Migraine without aura, not intractable, without status qdqzxD20.9 Eating disorder, unspecified Functional Status Description No Information Available Mental Status Description No Information Available Referrals Refer to Reason for Referral Status Appt Date Nutrition [facility] Not scheduled yet 02/13/19 No appt yet Sent 02/23/19 no appt yet-pt has not contacted office-I spoke with pt. She is having transportation issuses and is not sure if she wants to go or not 04/20/19 [address] [place] [address] [phone] Kati Hutchinson LMSW pt with severe PTSD, might benefit Received Partial 08/2018 from EMDR [address] [place] [address] [place] [address] [phone] Nutrition [facility] pt with chronic disordered eating, needs Sent help with nutrition Called referral office, no appt made, letter sent 12/15 [address] [place] [address] [phone] Juancarlos Kong MD pt with past hx of substance abuse, chronic Sent migraines and overuse headaches [address] [place] [address] [phone]
--- NOTE | 2019-04-25 11:26 | ED ---
Substance Abuse/Use - HPI Summary HPI Summary: 33 y/o female presented to [facility] complaining of minor withdrawal symptoms for 3- 4 days that got significantly worse last night. Symptoms are described as "classic dope sickness" with a "stomach tickle", sneezing, sniffling, and yawning. Patient has no suicidal ideations and notes that her psychiatric state has improved over time. She displayed photophobia in the room. Pt denies any fever, chills, erythema of eyes, sore throat, CP, SOB, cough, abdominal pain, N/ V/D, dysuria, hematuria, myalgia, edema, rash, or dizziness. She took Elavil last night and Buprenorphine either 1 or 2 days ago. Patient was recently admitted to [facility] [place] for major depression and opioid dependence, she was discharged on 04/19/19. She was recently placed on Medicaid. Patient went to [facility] her prescriptions but was only about to obtain her Klonopin and Elavil. She states that she has encountered issues obtaining prior authorization for her Buprenorphine. Patient took a 4 mg dose of Buprenorphine from a leftover prescription she had. Her PCP is Dr. Orozco. - History Of Current Complaint Chief Complaint: EDMedicationRefill Stated Complaint: WITHDRAWAL SYMPTOMS FROM MEDICINE PER PT Time Seen by Provider: 04/25/19 11:19 Hx Obtained From: Patient Timing Of Abuse: Recent Cessation For A Period Of - days Severity Currently: Severe Character: Other - sickness, "stomach tickle" Aggravating Factor(s): Medication Non-compliance - due to inability to acquire Alleviating Factor(s): Medication Associated Signs And Symptoms: Other: - Negative fever, chills, erythema of eyes , sore throat, CP, SOB, cough, abdominal pain, N/V, dysuria, hematuria, myalgia , edema, rash, or dizziness. positive - yawning, sniffling, "stomach tickle", sneezing Related Hx: Prior Drug Abuse Counseling/Admission - Allergies/Home Medications Allergies/Adverse Reactions: Allergies Allergy/AdvReac Type Severity Reaction Status Date / Time lamotrigine [From Lamictal] Allergy See Comment Verified 04/25/19 11:13 PMH/Surg Hx/FS Hx/Imm Hx Endocrine/Hematology History: Reports: Hx Anemia Denies: Hx Diabetes, Hx Thyroid Disease Cardiovascular History: Reports: Other Cardiovascular Problems/Disorders - mitral valve proplapse age 18-19 Denies: Hx Auto Implanted Cardiovert Defib GI History: Reports: Hx Gastroesophageal Reflux Disease Sensory History: Denies: Hx Contacts or Glasses, Hx Hearing Aid Opthamlomology History: Denies: Hx Contacts or Glasses Neurological History: Reports: Hx Headaches, Hx Migraine Psychiatric History: Reports: Hx Anxiety, Hx Eating Disorder, Hx Depression - MDD , Hx Post Traumatic Stress Disorder, Hx Community Mental Health Tx Denies: Hx Panic Disorder, Hx Inpatient Treatment, Hx Schizophrenia, Hx Suicide Attempt, Hx of Violent Episodes Against Others, Hx Substance Abuse - Surgical History Surgery Procedure, Year, and Place: surgeries on ears and eyes prior to age 3 Infectious Disease History: No Infectious Disease History: Denies: Traveled Outside the [place] in Last 30 Days - Family History Known Family History: Negative: Blood Disorder - Social History Alcohol Use: None Substance Use Type: Reports: Marijuana Smoking Status (MU): Light Every Day Tobacco Smoker Review of Systems Constitutional: Other - positive - yawning Negative: Fever, Chills Positive: Photophobia. Negative: Erythema ENT: Other - positive - sneezing Positive: Nasal Discharge. Negative: Sore Throat Negative: Chest Pain Negative: Shortness Of Breath, Cough Gastrointestinal: Other - positive - "stomach tickle" Negative: Abdominal Pain, Vomiting, Diarrhea, Nausea Negative: dysuria, hematuria Negative: Myalgia, Edema Negative: Rash Negative: Weakness Positive: Other - negative dizziness All Other Systems Reviewed And Are Negative: Yes Physical Exam - Summary Physical Exam Summary: Constitutional: Well-developed, Well-nourished, Alert. (-) Distressed Skin: Warm, Dry HENT: Normocephalic; Atraumatic Eyes: Conjunctiva normal, dilated pupils Neck: Musculoskeletal ROM normal neck. (-) JVD, (-) Stridor, (-) Tracheal deviation Cardio: Rhythm regular, rate normal, Heart sounds normal; Intact distal pulses; The pedal pulses are 2+ and symmetric. Radial pulses are 2+ and symmetric. (-) Murmur Pulmonary/Chest wall: Effort normal. (-) Respiratory distress, (-) Wheezes, (-) Rales Abd: Soft, (-) tenderness, (-) Distension, (-) Guarding, (-) Rebound Musculoskeletal: (-) Edema Lymph: (-) Cervical adenopathy Neuro: Alert, Oriented x3 Psych: Mood and affect Normal Triage Information Reviewed: Yes Vital Signs On Initial Exam: Initial Vitals Temp Pulse Resp BP Pulse Ox 98 F 122 16 116/91 99 04/25/19 11:07 04/25/19 11:07 04/25/19 11:07 04/25/19 11:07 04/25/19 11:07 Vital Signs Reviewed: Yes Procedures - Sedation Patient Received Moderate/Deep Sedation with Procedure: No Diagnostics - Vital Signs Vital Signs Temp Pulse Resp BP Pulse Ox 04/25/19 11:07 98 F 122 16 116/91 99 - Laboratory Lab Statement: Any lab studies that have been ordered have been reviewed, and results considered in the medical decision making process. Course/Dx - Course Course Of Treatment: 33 y/o female presented to [facility] complaining of minor withdrawal symptoms for 3-4 days that got significantly worse last night. Symptoms are described as "classic dope sickness" with a stomach tickle, sneezing, sniffling, and yawning. Patient has no suicidal ideations and notes that her mental state has improved over time. She displayed photophobia in the room. She took Elavil last night and Buprenorphine either 1 or 2 days ago. Patient was recently admitted to [facility] [place] for major depression and opioid dependence, she was discharged on 04/19/19. She was recently placed on Medicaid. Patient went to [facility] [employer] her prescriptions but was only about to obtain her Klonopin and Elavil. She states that she has encountered issues obtaining prior authorization for her Buprenorphine. Patient took a 4 mg dose of Buprenorphine from a leftover prescription she had. Exam showed dilated pupils but was otherwise normal. It is noted that the patient took 4mg Buprenorphine but prescribed 8mg, indicating an underdose. Early signs of opiate withdrawal were apparent. Patient was diagnosed with opioid withdrawal and given 8mg Buprenorphine. She was discharged and instructed to follow up with PCP tomorrow pending prior authorization. Social work will follow up with her as well. Patient's roommate came to pick the patient up to drive her home. - Diagnoses Provider Diagnoses: Opiate withdrawal Discharge ED - Sign-Out/Discharge Documenting (check all that apply): Patient Departure - dc - Discharge Plan Condition: Stable Disposition: HOME Patient Education Materials: Opioid Withdrawal (ED) Referrals: Karolyn Recinos MD [Primary Care Provider] - Additional Instructions: Please follow up with your primary care physician in 1 day. If you experience new or worsening symptoms please return to the ER. - Attestation Statements Document Initiated by Scribe: Yes Documenting Scribe: JONY ALMANZA Provider For Whom Scribe is Documenting (Include Credential): ROYA MALIK MD Scribe Attestation: I, JONY ALMANZA, scribed for ROYA MALIK MD on 04/25/19 at 1613. Status of Scribe Document: Ready
[2019-04-25] MEDS ORDERED: Buprenorp/Nalox 8-2 MG FILM SL FILM ONE (11:45)
[2019-04-25 12:19] VITALS: BP 126/86
== END 2019-04-25 12:18 | disposition home or self-care (01) ==
LOC: ED 11:05
DX: F11.23 Opioid dependence with withdrawal (principal); D64.9 Anemia, unspecified; K21.9 Gastro-esophageal reflux disease without esophagitis; F41.9 Anxiety disorder, unspecified; F32.9 Major depressive disorder, single episode, unspecified; F43.10 Post-traumatic stress disorder, unspecified; F17.200 Nicotine dependence, unspecified, uncomplicated; Z79.899 Other long term (current) drug therapy; Z88.8 Allergy status to other drugs, medicaments and biological substances
CPT/HCPCS: 99282; A9270-GY

== ENCOUNTER 2019-07-05 03:42 | Emergency (ER) | payer MEDICAID, OTHER ==
--- NOTE | 2019-07-05 04:12 | ED ---
Abdominal Pain/Female - HPI Summary HPI Summary: 33 year old F arriving via private car to [facility] complains of epigastric pain described as burning for several hours. Hx acid reflux. She has been getting it intermittently for the past year. She felt fine before going to bed yesterday evening. She woke up and had burning pain. She is unable to sleep d/t the discomfort. Took Reglan 0245 which did not help. The patient rates the pain 6/ 10 in severity. Symptoms aggravated by nothing. Symptoms alleviated by nothing. Medications reviewed. Allergies noted. - History of Current Complaint Chief Complaint: EDAbdPain Stated Complaint: ACID REFLUX PER PATIENT Hx Obtained From: Patient Onset/Duration: Lasting Hours, Still Present Timing: Constant Severity Currently: Moderate Pain Intensity: 6 Pain Scale Used: 0-10 Numeric Location: Epigastric Character: Burning Aggravating Factor(s): Nothing Alleviating Factor(s): Nothing Allergies/Adverse Reactions: Allergies Allergy/AdvReac Type Severity Reaction Status Date / Time lamotrigine [From Lamictal] Allergy See Comment Verified 07/05/19 03:47 Home Medications: Home Medications clonazePAM TAB(*) [Klonopin TAB(*)] 1 mg PO BID PRN 03/19/18 [History Confirmed 07/05/19] Buprenorphine TAB* [Subutex TAB*] 8 mg SL BID 07/27/18 [History Confirmed ] Aspirin/Acetaminophen/Caffeine [Excedrin Extra Strength Caplet] 4 tab PO BID PRN 10/15/18 [History Confirmed 07/05/19] Amitriptyline TAB* [Elavil TAB*] 10 mg PO BEDTIME #30 tab 04/19/19 [Rx Confirmed 07/05/19] Vitamin THERAPEUTIC TAB* [Theragran TAB*] 1 tab PO DAILY tab 04/19/19 [Rx Confirmed 07/05/19] Famotidine TAB* [Pepcid 20 MG TAB*] 40 mg PO DAILY #30 tab 07/05/19 [Rx] PMH/Surg Hx/FS Hx/Imm Hx Endocrine/Hematology History: Reports: Hx Anemia Denies: Hx Diabetes, Hx Thyroid Disease Cardiovascular History: Reports: Other Cardiovascular Problems/Disorders - mitral valve proplapse age 18-19 Denies: Hx Auto Implanted Cardiovert Defib GI History: Reports: Hx Gastroesophageal Reflux Disease Sensory History: Denies: Hx Contacts or Glasses, Hx Hearing Aid Opthamlomology History: Denies: Hx Contacts or Glasses Neurological History: Reports: Hx Headaches, Hx Migraine Psychiatric History: Reports: Hx Anxiety, Hx Eating Disorder, Hx Depression - MDD , Hx Post Traumatic Stress Disorder, Hx Community Mental Health Tx Denies: Hx Panic Disorder, Hx Inpatient Treatment, Hx Schizophrenia, Hx Suicide Attempt, Hx of Violent Episodes Against Others, Hx Substance Abuse - Surgical History Surgery Procedure, Year, and Place: surgeries on ears and eyes prior to age 3 Infectious Disease History: No Infectious Disease History: Denies: Traveled Outside the [place] in Last 30 Days - Family History Known Family History: Positive: Other - ETOH - Social History Alcohol Use: None Hx Substance Use: Yes Substance Use Type: Reports: Marijuana Hx Tobacco Use: Yes Smoking Status (MU): Light Every Day Tobacco Smoker Review of Systems Negative: Fever Positive: Abdominal Pain - epigastric All Other Systems Reviewed And Are Negative: Yes Physical Exam - Summary Physical Exam Summary: Appearance: The patient is quite somnolent but does not appear to be in any obvious discomfort Skin: Warm, dry, no obvious rash; she has healed scars on her forearms consistent with prior cutting behavior Eyes: sclera anicteric, no conjunctival pallor HENT: mucous membranes moist, pharynx appears normal Neck: Supple, nontender Respiratory: Clear to auscultation, no signs of respiratory distress Cardiovascular: Normal S1, S2. No murmurs. Normal distal pulses in tibial and radial bilaterally. Abdomen: Soft, nontender, normal active bowel sounds present Musculoskeletal: Normal, Strength/ROM Intact Neurological: A&Ox3, awake and alert, mentation is normal, speech is fluent and appropriate Psychiatric: affect is normal, does not appear anxious or depressed Triage Information Reviewed: Yes Vital Signs On Initial Exam: Initial Vitals Temp Pulse Resp BP Pulse Ox 97.9 F 80 14 113/83 100 07/05/19 03:44 07/05/19 03:44 07/05/19 03:44 07/05/19 03:44 07/05/19 03:44 Vital Signs Reviewed: Yes Procedures - Sedation Patient Received Moderate/Deep Sedation with Procedure: No Diagnostics - Vital Signs Vital Signs Temp Pulse Resp BP Pulse Ox 07/05/19 03:44 97.9 F 80 14 113/83 100 - Laboratory Result Diagrams: 07/05/19 05:05 07/05/19 05:05 Lab Statement: Any lab studies that have been ordered have been reviewed, and results considered in the medical decision making process. Abdominal Pain Fem Course/Dx - Course Course Of Treatment: 33 y/o F with hx acid reflux c/o epigastric pain described as burning for several hours. The patient is quite somnolent but does not appear to be in any obvious discomfort. Bloodwork results with no significant abnormalities. In the ED course, the patient was given Maalox, Pepcid, lidocaine. She feels better after receiving these medications. Patient will be discharged home with follow up from her primary care provider. Patient was instructed to return to Emergency Department for new or worsening symptoms. Patient understands and is agreeable to this plan. - Diagnoses Provider Diagnoses: Abdominal pain, GERD (gastroesophageal reflux disease) Discharge ED - Sign-Out/Discharge Documenting (check all that apply): Patient Departure - Discharge Plan Condition: Good Disposition: HOME Prescriptions: Famotidine TAB* [Pepcid 20 MG TAB*] 40 mg PO DAILY #30 tab Patient Education Materials: Gastroesophageal Reflux Disease (DC), Acute Abdominal Pain (ED) Referrals: Karolyn Recinos MD [Primary Care Provider] - - Billing Disposition and Condition Condition: GOOD Disposition: Home - Attestation Statements Document Initiated by Erin: Yes Documenting Scribe: Tyra Jeong Provider For Whom Erin is Documenting (Include Credential): Titus Miller MD Scribe Attestation: Tyra Courtney, scribed for Titus Miller MD on 07/09/19 at 2002. Scribe Documentation Reviewed: Yes Provider Attestation: The documentation as recorded by the Tyra garcia accurately reflects the service I personally performed and the decisions made by me, Titus Miller MD Status of Scrjaleesa Document: Viewed
[2019-07-05] MEDS ORDERED: Al Hydrox/Mg Hydrox/Simet LIQ* 30 ML UDC PO ONE (04:21)
[2019-07-05] MEDS ORDERED: Famotidine TAB* 20 MG PO ONE (04:21)
[2019-07-05] MEDS ORDERED: Lidocaine 2% VISCOUS* 15 ML UDC PO ONE (04:21)
[2019-07-05 05:17] LABS: ABS Eosinophils 0.1 10^3/ul (0-0.6); ABS Lymphocytes 1.1 10^3/ul (1.0-4.8); ABS Monocytes 0.4 10^3/ul (0-0.8); Eosinophil % 3.8 %; Hematocrit 42 % (35-47); Hemoglobin 14.6 g/dL (12.0-16.0); Mean Corpuscular HGB Conc 35 g/dL (31-36); Mean Corpuscular Hemoglobin 31 pg (27-31); Mean Corpuscular Volume 90 fL (80-97); Mean Platelet Volume 8.3 fL (7.4-10.4); Nucleated Red Blood Cells % 0.1; Platelet Count 202 10^3/uL (150-450); Red Blood Count 4.66 10^6 /uL (3.70-4.87); Red Cell Distribution Width 12 % (10-15); White Blood Count 3.6 10^3/uL (3.5-10.8)
[2019-07-05 05:37] LABS: ALT 10 U/L (7-52); AST 15 U/L (13-39); Albumin/Globulin Ratio 1.6 (1-3); Alkaline Phosphatase 73 U/L (34-104); Anion Gap 6 mmol/L (2-11); BUN/Creatinine Ratio 30.8 (8-20); Blood Urea Nitrogen 20 mg/dL (6-24); CO2 Carbon Dioxide 26 mmol/L (22-32); Chloride 106 mmol/L (101-111); EGFR African American 125.5 (>60); EGFR Non-African American 103.7 (>60); Globulin 2.5 g/dL (2-4); Glucose 104 mg/dL (70-100); Potassium 3.8 mmol/L (3.5-5.0); Sodium 138 mmol/L (135-145); Total Protein 6.5 g/dL (6.4-8.9)
[2019-07-05 05:44] LABS: HCG Pregnancy < 0.60 mIU/mL
[2019-07-05 05:50] LABS: Calcium 9.3 mg/dL (8.6-10.3)
[2019-07-05 06:25] VITALS: BP 0/0
== END 2019-07-05 06:24 | disposition home or self-care (01) ==
LOC: ED 03:42
DX: R10.13 Epigastric pain (principal); K21.9 Gastro-esophageal reflux disease without esophagitis; D64.9 Anemia, unspecified; F41.9 Anxiety disorder, unspecified; F17.210 Nicotine dependence, cigarettes, uncomplicated; Z86.79 Personal history of other diseases of the circulatory system; Z79.899 Other long term (current) drug therapy
CPT/HCPCS: 36415; 80053; 83690; 84702; 85025; 99283; A9270-GY

== ENCOUNTER 2019-08-09 13:40 | Emergency (ER) | payer OTHER ==
[2019-08-09 13:56] VITALS: BP 109/80
--- OUTSIDE RECORDS SUMMARY | 2019-08-09 14:11 | XMS REPORT | Continuity of Care Document ---
:1985 External Reference #:[id number] Author Name Dustin Brennan NP (transmitted by agent of provider Flora Macias) Address [address], [place] [address] Care Team Providers Name Role Phone Karolyn Recinos M.D. - Family Medicine Care Team Information Clip Bolter And Wrapper [phone] Problems Active Problems Provider Date Migraine with typical aura Rebeka Khan, N.P. Onset: 07/26/2018 Chronic pain syndrome Rebeka Khan, N.P. Onset: 07/26/2018 Recurrent major depressive episodes Rebeka Khan, N.P. Onset: 07/26/2018 Iron deficiency anemia Owen Landon MD Onset: 10/17/2018 Social History Type Date Description Comments Sex Unknown Tobacco Use Start: Unknown Light tobacco smoker (10 or fewer cigarettes/day) Smoking Status Reviewed: 07/11/19 Light tobacco smoker (10 or fewer cigarettes/day) [...] Medications SIG Qnty Indications Ordering Date Provider Aimovig inject sq once 1ml Luis Garza 07/11/2019 70mg/ml Solution a month Escobar Carlsno Auto-Inject Buprenorphine Take 1 by mouth 75tabs G89.4 Shaye Orozco, 06/21/2019 Hydrochloride/Naloxone 2-3 times MD Hydrochloride daily as needed 8-2mg for pain Tablets Sub Clonazepam take 1 tablet 45Tablet Gerardo Benson NP 05/22/2019 1mg Tablets by mouth every 12 hours as needed for anxiety Ensure Nutrition Shake 2 by mouth 1Case Karolyn Recinos MD 02/01/2019 every day Liquid Ferrous Gluconate take 1 tablet 60tabs D50.9 Blanca Gary, 10/17/2018 by mouth twice M.D., FACP 324(38Fe) mg Tablets a day Excedrin Extra States she is Unknown Strength taking 4 tabs [phone] three times a Tablets day Famotidine as needed Titus Miller, 20mg Tablets M.D. Multivitamin Gummies daily Unknown Adult Chewtabs Medications Administered in Office Medication SIG Qnty Indications Ordering Provider Date No Injection Karolyn Recinos MD 05/08/2018 Injection Immunizations Description No Information Available Vital Signs Date Vital Result Comment 07/11/2019 11:54am Height 65.5 inches 5'5.50" Weight 119.00 lb Heart Rate 82 /min BP Systolic 104 mmHg BP Diastolic 72 mmHg BMI (Body Mass Index) 19.5 kg/m2 05/22/2019 8:47am Height 65.5 inches 5'5.50" Heart Rate 78 /min BP Systolic Sitting 111 mmHg BP Diastolic Sitting 73 mmHg O2 % BldC Oximetry 98 % Results Test Acquired Date Facility Test Result H/L Range Note CBC Auto 07/05/2019 [facility] White Blood 3.6 10^3/uL Normal 3.5-10.[address] [place] [address] [phone] Red Blood Count 4.66 10^6/uL Normal 3.70-4.87 Hemoglobin 14.6 g/dL Normal 12.0-16.0 Hematocrit 42 % Normal 35-47 Mean Corpuscular Volume 90 fL Normal 80-97 Mean Corpuscular Hemoglobin 31 pg Normal 27-31 Mean Corpuscular HGB Conc 35 g/dL Normal 31-36 Red Cell Distribution Width 12 % Normal 10-15 Platelet Count 202 10^3/uL Normal 150-450 Mean Platelet Volume 8.3 fL Normal 7.4-10.4 Abs Neutrophils 2.0 10^3/uL Normal 1.5-7.7 Abs Lymphocytes 1.1 10^3/uL Normal 1.0-4.8 Abs Monocytes 0.4 10^3/uL Normal 0-0.8 Abs Eosinophils 0.1 10^3/uL Normal 0-0.6 Abs Basophils 0.0 10^3/uL Normal 0-0.2 Abs Nucleated RBC 0.0 10^3/uL Granulocyte % 55.2 % Lymphocyte % 30.0 % Monocyte % 10.4 % Eosinophil % 3.8 % Basophil % 0.6 % Nucleated Red Blood Cells % 0.1 Comp Metabolic 07/05/2019 [facility] Sodium 138 mmol/L Normal 135-[address] [place] [address] [phone] Potassium 3.8 mmol/L Normal 3.5-5.0 Chloride 106 mmol/L Normal 101-111 Co2 Carbon Dioxide 26 mmol/L Normal 22-32 Anion Gap 6 mmol/L Normal 2-11 Glucose 104 mg/dL High 70-100 Blood Urea Nitrogen 20 mg/dL Normal 6-24 Creatinine 0.65 mg/dL Normal 0.51-0.95 BUN/Creatinine Ratio 30.8 High 8-20 Total Protein 6.5 g/dL Normal 6.4-8.9 Albumin 4.0 g/dL Normal 3.2-5.2 Globulin 2.5 g/dL Normal 2-4 Albumin/Globulin Ratio 1.6 Normal 1-3 Total Bilirubin 0.20 mg/dL Normal 0.2-1.0 Alkaline Phosphatase 73 U/L Normal 34-104 Alt 10 U/L Normal 7-52 Ast 15 U/L Normal 13-39 Egfr Non- 103.7 >60 Egfr 125.5 >60 1 Calcium 9.3 mg/dL Normal 8.6-10.3 Laboratory test 07/05/2019 [facility] Lipase 26 U/L Normal 11.0-82.[address] [place] [address] [phone] HCG < 0.60 mIU/mL 2 Drug Abuse 05/22/2019 [facility] Urine Negative Cutoff: 10 3 W/Confirm, Ur [address] Alcohol mg/[place] [address] [phone] Urine Amphetamine Negative ng/mL 4 Urine Barbiturates Negative ng/mL 5 Urine Benzodiazepines Presumptive Posi <SEE NOTE> ng/mL Abnormal 6 Urine Cocaine Negative ng/mL 7 Urine Methadone Negative ng/mL Negative 8 Urine Opiates Negative ng/mL Negative 9 Urine Phencyclidine Negative ng/mL Cutoff: 25 Urine Tetrahydrocannabinol Negative ng/mL Cutoff: 50 10 Urine Benzodiazepines 05/22/2019 [facility] Urine Negative [address] Lorazepam ng/[place] [address] GC/MS [phone] Urine Nordiazepam GC/MS Negative ng/mL 12 Urine Oxazepam GC/MS Negative ng/mL 13 Urine Temazepam GC/MS Negative ng/mL 14 Ur Oh Ethyl Flurazepam GC/MS Negative ng/mL 15 Ur 7 NH Clonazepam GC/MS 611 ng/mL 16 Ur 7 NH Flunitrazepam GC/MS Negative ng/mL Cutoff: 50 Ur Alpha Oh Alprazolam GC/MS Negative ng/mL 17 Ur Alpha Oh Triazolam GC/MS Negative ng/mL 18 Ur Benzodiazepine Interp Positive. 19 Urinalysis Profile 04/13/2019 [facility] Urine Color Yellow [address] [place] [address] [phone] Urine Appearance Clear Urine Specific [place] 1.021 Normal 1.010-1.030 Urine pH 7.0 Normal 5-9 Urine Urobilinogen Negative Negative Urine Ketones Negative Negative Urine Protein 1+(30 mg/dL) Abnormal Negative Urine Leukocytes Negative Negative Urine Blood Negative Negative * * Abnormal Negative 20 Urine Nitrite Negative Negative Urine Bilirubin Negative Negative Urine Glucose Negative Negative Urine White Blood Cell Trace(0-5/hpf) Absent Urine Red Blood Cell Trace(0-2/hpf) Absent Urine Bacteria Absent Absent Urine Squamous Epithelial Cell Present Abnormal Absent Urine Culture And 04/13/2019 [facility] Urine SEE RESULT [address] [place] [address] [phone] CBC Auto Diff 04/13/2019 [facility] White Blood 4.5 10^3/uL Normal 3.5- [address] Count 10.8 [place] [address] [phone] Red Blood Count 4.08 10^6/uL Normal 3.70-4.87 [...] Blood Cells % 0.0 Comp Metabolic 04/13/2019 [facility] Sodium 142 mmol/L Normal 135-[address] [place] [address] [phone] Potassium 4.1 mmol/L Normal 3.5-5.0 Chloride 108 [...] Egfr Non- 111.6 >60 Egfr 135.1 >60 22 Laboratory test 04/13/2019 [facility] HCG < 0.60 mIU/ mL [address] [place] [address] [phone] Acetaminophen < 15 g/mL 24 Alcohol < 10 mg/dL Normal <10 Salicylate 8.70 mg/dL <30 Urine Drug 04/13/2019 [facility] Urine None Detected None Detect SCR ED & [address] [place] [address] Screen [phone] Urine Barbiturates Screen None Detected None Detect Urine Benzodiazepine Screen None Detected None Detect Urine Cannabinoids Screen None Detected None Detect Urine Cocaine Screen None Detected None Detect Urine Opiates Screen None Detected None Detect Urine Phencyclidine Screen None Detected None Detect 25 Lipid Profile 02/27/2019 [facility] Triglycerides 79 mg/dL 26 (Trig/Chol/HDL) [address] [place], [place] [id number] [phone] Cholesterol 160 mg/dL 27 HDL Cholesterol 52.2 mg/dL 28 LDL Cholesterol 92 mg/dL 29 Laboratory test 01/26/2019 [facility] Ferritin 18.3 ng/mL Normal 11-[address] [place] [address] [phone] Vitamin B12 358 pg/mL Normal 180-914 30 CBC Auto 01/26/2019 [facility] White Blood 4.1 10^3/uL Normal 3.5-10.[address] [place] [address] [phone] Red Blood Count 4.79 10^6/uL Normal 3.70-4.87 [...] Nucleated Red Blood Cells % 0.2 1 Because ethnic data is not always readily [...] 15-29 5 Kidney failure <15 (or dialysis) 2 <5.0 Negative 5.0 - 25.0 Indeterminate (Repeat testing recommended after 72 hours) >25.0 Positive Perimenopausal women can display HCG levels of up to 20 mIU/mL 3 [id number] 4 REFERENCE VALUE Cutoff: 500 5 REFERENCE VALUE Cutoff: 200 6 Presumptive Positive Drug confirmation to follow. Presumptive Positive means that the screening method is positive, but the test needs to be run by a confirmatory method before being finalized. REFERENCE VALUE Cutoff: 100 7 REFERENCE VALUE Cutoff: 150 8 REFERENCE VALUE Cutoff: 300 9 REFERENCE VALUE Cutoff: 300 10 ADDITIONAL INFORMATION This report is intended for use in clinical monitoring or management of patients. It is not intended for use in employment-related testing. This test has been modified from the pediatric rn's instructions. Its performance characteristics were determined by [facility] in a manner consistent with CLIA requirements. This test has not been cleared or approved by the U.S. Food and Drug Administration. Test Performed by: [facility] [place] [address] Epic Interface Analyst: Montrell Irizarry M.D. Ph.D.; CLIA# [id number] 11 REFERENCE VALUE Cutoff: 100 12 REFERENCE VALUE Cutoff: 100 13 REFERENCE VALUE Cutoff: 100 14 REFERENCE VALUE Cutoff: 100 15 REFERENCE VALUE Cutoff: 100 16 REFERENCE VALUE Cutoff: 100 17 REFERENCE VALUE Cutoff: 100 18 REFERENCE VALUE Cutoff: 100 19 ADDITIONAL INFORMATION This report is intended for use in clinical monitoring and management of patients. It is not intended for use in employment-related testing. This test was developed and its performance characteristics determined by [facility] in a manner consistent with CLIA requirements. This test has not been cleared or approved by the U.S. Food and Drug Administration. Test Performed by: [facility] [place] [address] [place] [address] Epic Interface Analyst: Montrell Irizarry M.D. Ph.D.; CLIA# [id number] 20 *Ascorbic acid is present which may interfere with detection of blood. 21 SEE RESULT BELOW Name: NETTIE NAIR : [address]: Jeyson Acuna MD Acct: [id number] Unit: [id number] AGE: 33 Location: [facility] 213- Re04/13/19 SEX: F Status: ADM IN SPEC: [id number] CYNDY: 04/13/19 EDER MUNOZ: Faisal Grissom MD REQ: [id number] RECD: 04/13/19 STATUS: NELLY [facility] DR: Karolyn Recinos MD _ SOURCE: URINE [facility]: ORDERED: Urine Culture Procedure Result Reported Site Urine Culture Final 04/15/19- 0842 ML No Growth (<1,000 CFU/mL) * ML - Main Lab . END OF REPORT DEPARTMENT OF PATHOLOGY, [address] [place] [address] Adelfo Acosta M.D. Director [facility] # [id number] 22 Because ethnic data is not always readily [...] 15-29 5 Kidney failure <15 (or dialysis) 23 <5.0 Negative 5.0 - 25.0 Indeterminate (Repeat testing recommended after 72 hours) >25.0 Positive Perimenopausal women can display HCG levels of up to 20 mIU/mL 24 Therapeutic concentration: <50 ug/mL Toxic concentration: >120 ug/mL 25 The urine specimen was tested at the listed cutoffs: Drug class test level (ng/mL) Amphetamines 500 Barbiturates 200 Benzodiazepine metabolites 200 Cocaine metabolites 150 Cannabinoids 50 Opiates 300 Pcp 25 Specimen was received without chain of custody. Results should be used for medical purposes only. 26 Desirable: <150 Borderline High: 150-199 High: 200-499 Very High: >500 27 Desirable: <200 Borderline High: 200-239 High: >239 28 Low: <40 Desirable: 40-60 High: >60 29 Desirable: <100 Near Optimal: 100-129 Borderline High: 130-159 High: 160-189 Very High: >189 30 Normal Range 180 to 914 Indeterminate Range 145 to 180 Deficient Range <145 Procedures Description No Information Available Medical Devices Description No Information Available Encounters Type Date Location Provider Dx Diagnosis Office Visit 07/11/2019 [facility] Dustin Brennan NP G43.009 Migraine w/o aura, 11:30a Services Of [facility] not intractable, w/o status migrainosus Office Visit 05/22/2019 [facility] Internal Shaye Orozco F33.9 Major depressive 9:00a Medicine - Ccmob MD disorder, recurrent, unspecified G43.009 Migraine w/o aura, not intractable, w/o status migrainosus Office Visit 05/03/2019 2:00p [facility] Internal Shaye F33.9 Major depressive Medicine - MD Ernesto disorder, Ccmob recurrent, unspecified G43.009 Migraine w/o aura, not intractable, w/o status migrainosus Office Visit 04/24/2019 8:30a [facility] Internal Shaye F33.9 Major depressive Medicine - MD Ernesto disorder, Ccmob recurrent, unspecified R45.851 Suicidal ideations G43.009 Migraine w/o aura, not intractable, w/o status migrainosus F50.9 Eating disorder, unspecified Office Visit 02/27/2019 1:00p [facility] Internal Shaye Orozco, Z00.00 Encntr for Medicine - [facility] general adult medical exam w/o abnormal findings G43.009 Migraine w/o aura, not intractable, w/o status migrainosus F50.9 Eating disorder, unspecified F33.9 Major depressive disorder, recurrent, unspecified Assessments Date Code Description Provider 07/11/2019 G43.009 Migraine without aura, not intractable, Dustin Brennan NP without status migra 05/22/2019 F33.9 Major depressive disorder, recurrent, Shaye Orozco MD unspecified 05/22/2019 G43.009 Migraine without aura, not intractable, Shaye Orozco MD without status migra 05/03/2019 F33.9 Major depressive disorder, recurrent, Shaye Orozco MD unspecified 05/03/2019 G43.009 Migraine without aura, not intractable, Shaye Orozco MD without status migra 04/24/2019 F33.9 Major depressive disorder, recurrent, Shaye Orozco MD unspecified 04/24/2019 R45.851 Suicidal ideations Shaye Orozco MD 04/24/2019 G43.009 Migraine without aura, not intractable, [...] depressive disorder, recurrent, Shaye Orozco MD unspecified Plan of Treatment Future Appointment(s):09/05/2019 8:40 am - [facility] Dustin Brennan NPG43.009 Migraine without aura, not intractable, without status migraFollow up:3 MONTHSRecommendations:Take your Aimovig as prescribed. Report worsening headaches. Functional Status Description No Information Available Mental Status Description No Information Available Referrals Refer to Reason for Referral Status Appt Date Nutrition [facility] Not scheduled yet 02/13/19 No appt yet Sent 02/23/19 no appt yet-pt has not contacted office-I spoke with pt. She is having transportation issuses and is not sure if she wants to go or not 04/20/[address] [place] [address] [phone]
--- OUTSIDE RECORDS SUMMARY | 2019-08-09 14:11 | XMS REPORT | Continuity of Care Document ---
:1985 External Reference #:[id number] Author Name Karolyn Recinos MD Address [address] , [place] [address] Care Team Providers Name Role Phone Karolyn Recinos M.D. - Family Medicine Care Team Information Relay Operator Problems Active Problems Provider Date Migraine with typical aura Rebeka Khan, N.PGilmer Onset: 07/26/2018 Chronic pain syndrome Rebeka Khan, N.PGilmer Onset: 07/26/2018 Recurrent major depressive episodes Rebeka Khan N.PGilmer Onset: 07/26/2018 Iron deficiency anemia Owen [...] Medications Active Medications SIG Qnty Indications Ordering Provider Date Aimovig inject sq once 1ml Luis Carlson, 08/07/2019 140mg/ml Solution a month. M.D. Auto-Inject Famotidine 1 by mouth 30tabs Gerardo Benson NP 07/30/2019 20mg Tablets every day Buprenorphine HCL 1 tab sl every 90tabs G89.4 Jennifer Wood MD 07/16/2019 8mg three times a Tablets Sub day as needed for pain mdd 3 G43.009 Clonazepam take 1 tablet by 45Tablet Gerardo Benson NP 05/22/2019 1mg Tablets mouth every 12 hours as needed for anxiety Ensure Nutrition Shake 2 by mouth every 1Case Karolyn Recinos MD 02/01/2019 day Liquid Ferrous Gluconate take 1 tablet by 60tabs D50.9 Blanca Gary M.D., 2018 324(38Fe) mouth twice a day FACP mg Tablets Excedrin Extra Strength States she is Unknown taking 4 tabs [phone] Tablets three times a day Multivitamin Gummies daily Unknown Adult Chewtabs History Medications Aimovig inject sq once 1ml Luis Carlson, 08/07/2019 - 70mg/ml Solution a month M.D. 08/07/2019 Auto-Inject Aimovig inject sq once 1ml Luis Carlson, 07/11/2019 - 70mg/ml Solution a month M.D. 08/07/2019 Auto-Inject Buprenorphine Take 1 by mouth 75tabs G89.4 Shaye Orozoc 06/21/2019 - Hydrochloride/Naloxone 2-3 times 07/16/2019 Hydrochloride daily as needed 8-2mg for pain Tablets Sub Medications Administered in Office Medication SIG Qnty [...] Result H/L Range Note CBC Auto 07/05/2019 [facility] White Blood 3.6 10^3/uL Normal 3.5-10.[address] [place] [address] [phone] Red Blood Count 4.66 10^6/uL Normal 3.70-4.87 [...] Blood Cells % 0.1 Comp Metabolic 07/05/2019 [facility] Sodium 138 mmol/L Normal 135-[address] [place] [address] [phone] Potassium 3.8 mmol/L Normal 3.5-5.0 Chloride 106 [...] 9.3 mg/dL Normal 8.6-10.3 Laboratory test 07/05/2019 [facility] Lipase 26 U/L Normal 11.0-82.[address] [place], [place] [address] [phone] HCG < 0.60 mIU/mL 2 Drug Abuse 05/22/2019 [facility] Urine Negative Cutoff: 10 3 W/Confirm, Ur [address] Alcohol mg/[place] [address] [phone] Urine Amphetamine Negative ng/mL 4 Urine Barbiturates Negative ng/mL 5 Urine Benzodiazepines Presumptive Posi <SEE NOTE> ng/mL Abnormal 6 Urine Cocaine Negative ng/mL 7 Urine Methadone Negative ng/mL Negative 8 Urine Opiates Negative ng/mL Negative 9 Urine Phencyclidine Negative ng/mL Cutoff: 25 Urine Tetrahydrocannabinol Negative ng/mL Cutoff: 50 10 Urine Benzodiazepines 05/22/2019 [facility] Urine Negative [address] Lorazepam ng/[place] [address] GC/MS [phone] Urine Nordiazepam GC/MS Negative ng/mL 12 Urine [...] Benzodiazepine Interp Positive. 19 Urinalysis Profile 04/13/2019 [facility] Urine Color Yellow [address] [place] [address] [phone] Urine Appearance Clear Urine Specific [place] 1.021 Normal 1.010-1.030 Urine pH 7.0 Normal [...] Present Abnormal Absent Urine Culture And 04/13/2019 [facility] Urine SEE RESULT [address] [place] [address] [phone] CBC Auto Diff 04/13/2019 [facility] White Blood 4.5 10^3/uL Normal 3.5- [address] Count 10.8 [place] [address] [phone] Red Blood Count 4.08 10^6/uL Normal 3.70-4.87 [...] Blood Cells % 0.0 Comp Metabolic 04/13/2019 [facility] Sodium 142 mmol/L Normal 135-[address] [place] [address] [phone] Potassium 4.1 mmol/L Normal 3.5-5.0 Chloride 108 [...] Egfr 135.1 >60 22 Laboratory test 04/13/2019 [facility] HCG < 0.60 mIU/ mL 23 finding [address] [place] [address] [phone] Acetaminophen < 15 g/mL 24 Alcohol < 10 mg/dL Normal <10 Salicylate 8.70 mg/dL <30 Urine Drug 04/13/2019 [facility] Urine None Detected None Detect SCR ED & [address] [facility] [place] [address] Screen [phone] Urine Barbiturates Screen None Detected None Detect Urine Benzodiazepine Screen None Detected None Detect Urine Cannabinoids Screen None Detected None Detect Urine Cocaine Screen None Detected None Detect Urine Opiates Screen None Detected None Detect Urine Phencyclidine Screen None Detected None Detect 25 Lipid Profile 02/27/2019 [facility] Triglycerides 79 mg/dL 26 (Trig/Chol/HDL) [address] [place] [address] [phone] Cholesterol 160 mg/dL 27 HDL Cholesterol 52.2 mg/dL 28 LDL Cholesterol 92 mg/dL 29 1 Because ethnic data is not always [...] levels of up to 20 mIU/mL 3 [id number] REFERENCE VALUE Cutoff: 500 5 REFERENCE [...] This test has been modified from the corporate financial analyst's instructions. Its performance characteristics were determined by [facility] in a manner consistent with CLIA requirements. This test has not been cleared or approved by the U.S. Food and Drug Administration. Test Performed by: [facility] [address] [place] [address] Drawer Waxer: Montrell Irizarry M.D. Ph.D.; YOHAN# [id number] 11 REFERENCE VALUE Cutoff: 100 12 REFERENCE [...] developed and its performance characteristics determined by [facility] in a manner consistent with CLIA requirements. This test has not been cleared or approved by the U.S. Food and Drug Administration. Test Performed by: [facility] [address] [place] [address] Drawer Waxer: Montrell Irizarry M.D. Ph.D.; CLIA# [id number] 20 *Ascorbic acid is present which may interfere with detection of blood. 21 SEE RESULT BELOW Name: NETTIE BASILIO : [address]: Jeyson Acuna MD Acct: [id number] Unit: [id number] AGE: 33 Location: [facility] Re04/13/19 SEX: F Status: ADM IN SPEC: [id number] CYNDY: 04/13/19 [facility] DR: Faisal Grissom MD REQ: [id number] RECD: 04/13/19 STATUS: NELLY BLANCO DR: Karolyn Recinos MD _ SOURCE: URINE SPDESC: ORDERED: Urine Culture Procedure Result Reported Site Urine Culture Final 04/15/19- 0842 ML No Growth (<1,000 CFU/mL) * ML - Main Lab . END OF REPORT DEPARTMENT OF PATHOLOGY, [address] [place] [address] Adelfo Acosta M.D. Director [facility] # [id number] 22 Because ethnic data is not always [...] High: 130-159 High: 160-189 Very High: >189 Procedures Description No Information Available Medical Devices Description No Information Available Encounters Type Date Location Provider Dx Diagnosis Office Visit 07/11/2019 [facility] Dustin Brennan NP G43.009 Migraine w/o aura, 11:30a Services Of [facility] not intractable, w/o status migrainosus Office Visit 05/22/[address] [facility] Internal Shaye Orozco, F33.9 Major depressive 9:[facility], unspecified G43.009 Migraine w/o aura, not intractable, w/o status migrainosus Office Visit 05/03/2019 2:00p [facility] Internal Shaye F33.9 Major depressive Roshni Orozco MD disorder, Ccmob recurrent, unspecified G43.009 Migraine w/o aura, not intractable, w/o status migrainosus Office Visit 04/24/2019 8:30a [facility] Internal Shaye F33.9 Major depressive Roshni Orozco MD disorder, Ccmob recurrent, unspecified R45.851 Suicidal ideations G43.009 Migraine w/o aura, not intractable, w/o status migrainosus F50.9 Eating disorder, unspecified Office Visit 02/27/2019 1:00p [facility] Internal Shaye Orozco, Z00.00 [facility] w/o abnormal findings G43.009 Migraine w/o aura, not intractable, w/o status migrainosus F50.9 Eating disorder, unspecified F33.9 Major depressive disorder, recurrent, unspecified Assessments Date Code Description Provider 08/07/2019 G43.009 Migraine without aura, not intractable, Karolyn Recinos MD without status migra 08/07/2019 G89.4 Chronic pain syndrome Karolyn Recinos MD 08/07/2019 F33.9 Major depressive disorder, recurrent, Karolyn Recinos MD unspecified 07/11/2019 G43.009 Migraine without aura, not intractable, [...] 8:40 am - Karolyn Recinos MD at [facility] Internal [facility]08/07/2019 - Karolyn Recinos MDG43.009 Migraine without aura, not intractable, without status migraFollow up:2 moG89.4 Chronic pain wmakbzfsO19.9 Major depressive disorder, recurrent, unspecified Functional Status Description No Information Available Mental Status Description No Information Available Referrals Description No Information Available
[2019-08-09] MEDS ORDERED: Metoclopramide IV* 5 MG/ML 2 ML VIAL IV SLOW PU ONE (14:16)
[2019-08-09] MEDS ORDERED: Ketorolac INJ* 30 MG/ML 1 ML VIAL IV ONE (14:16)
[2019-08-09] MEDS ORDERED: NS 0.9% 1000 ML** 1,000 ML IV ONE (14:16)
--- NOTE | 2019-08-09 14:21 | ED ---
Headache - HPI Summary HPI Summary: 33 year old F presenting to [facility] with a chief complaint of a headache since _, worse since _. Patient reports photophobia and that the pain travels from the left to right. The patient rates the pain 8/10 in severity. Symptoms aggravated by _. Symptoms alleviated by _. The patient took 4 Excedrin migraine pills this morning and 5 a few hours later. She was seen at [facility] and was sent to the emergency department for further evaluation. Patient denies any dizziness, fever , chills, or blurred vision. Medication list reviewed. Allergy list reviewed. - History Of Current Complaint Chief Complaint: EDHeadache Stated Complaint: MIGRAINE PER PT Time Seen by Provider: 08/09/19 14:15 - Allergies/Home Medications Allergies/Adverse Reactions: Allergies Allergy/AdvReac Type Severity Reaction Status Date / Time lamotrigine [From Lamictal] Allergy See Comment Verified 07/05/19 03:47 Home Medications: Home Medications clonazePAM TAB(*) [Klonopin TAB(*)] 1 mg PO BID PRN 03/19/18 [History Confirmed 07/05/19] Buprenorphine TAB* [Subutex TAB*] 8 mg SL BID 07/27/18 [History Confirmed ] Aspirin/Acetaminophen/Caffeine [Excedrin Extra Strength Caplet] 4 tab PO BID PRN 10/15/18 [History Confirmed 07/05/19] Amitriptyline TAB* [Elavil TAB*] 10 mg PO BEDTIME #30 tab 04/19/19 [Rx Confirmed 07/05/19] Vitamin THERAPEUTIC TAB* [Theragran TAB*] 1 tab PO DAILY tab 04/19/19 [Rx Confirmed 07/05/19] Famotidine TAB* [Pepcid 20 MG TAB*] 40 mg PO DAILY #30 tab 07/05/19 [Rx] PMH/Surg Hx/FS Hx/Imm Hx Endocrine/Hematology History: Reports: Hx Anemia Denies: Hx Diabetes, Hx Thyroid Disease Cardiovascular History: Reports: Other Cardiovascular Problems/Disorders - mitral valve proplapse age 18-19 Denies: Hx Auto Implanted Cardiovert Defib GI History: Reports: Hx Gastroesophageal Reflux Disease Sensory History: Denies: Hx Contacts or Glasses, Hx Hearing Aid Opthamlomology History: Denies: Hx Contacts or Glasses Neurological History: Reports: Hx Headaches, Hx Migraine Psychiatric History: Reports: Hx Anxiety, Hx Eating Disorder, Hx Depression - MDD , Hx Post Traumatic Stress Disorder, Hx Community Mental Health Tx Denies: Hx Panic Disorder, Hx Inpatient Treatment, Hx Schizophrenia, Hx Suicide Attempt, Hx of Violent Episodes Against Others, Hx Substance Abuse - Surgical History Surgical History: Yes Surgery Procedure, Year, and Place: surgeries on ears and eyes prior to age 3 Infectious Disease History: No Infectious Disease History: Denies: Traveled Outside the [place] in Last 30 Days - Family History Known Family History: Positive: Other - ETOH - Social History Alcohol Use: None Hx Substance Use: Yes Substance Use Type: Reports: Marijuana Hx Tobacco Use: Yes Smoking Status (MU): Light Every Day Tobacco Smoker Review of Systems All Other Systems Reviewed And Are Negative: Yes Physical Exam Triage Information Reviewed: Yes Vital Signs On Initial Exam: Initial Vitals Temp Pulse Resp BP Pulse Ox 98.6 F 102 16 109/80 98 08/09/19 13:52 08/09/19 13:52 08/09/19 13:52 08/09/19 13:52 08/09/19 13:52 Vital Signs Reviewed: Yes Procedures - Sedation Patient Received Moderate/Deep Sedation with Procedure: No Diagnostics - Vital Signs Vital Signs Temp Pulse Resp BP Pulse Ox 08/09/19 13:52 98.6 F 102 16 109/80 98 - Laboratory Lab Statement: Any lab studies that have been ordered have been reviewed, and results considered in the medical decision making process. Discharge ED - Discharge Plan Referrals: Karolyn Recinos MD [Primary Care Provider] - - Attestation Statements Document Initiated by Scribe: Yes Documenting Scribe: Brittney Jensen Provider For Whom Scribe is Documenting (Include Credential): Mann Mahmood MD Scribe Attestation: Brittney Courtney, scribed for Mann Mahmood MD on 08/09/19 at 1421.
--- NOTE | 2019-08-09 14:45 | ED ---
Medical Screening - HPI Summary HPI Summary: Patient left before being seen by myself. - History of Current Complaint Chief Complaint: EDHeadache Stated Complaint: MIGRAINE PER PT Time Seen by Provider: 08/09/19 14:15 PMH/Surg Hx/FS Hx/Imm Hx Endocrine/Hematology History: Reports: Hx Anemia Denies: Hx Diabetes, Hx Thyroid Disease Cardiovascular History: Reports: Other Cardiovascular Problems/Disorders - mitral valve proplapse age 18-19 Denies: Hx Auto Implanted Cardiovert Defib GI History: Reports: Hx Gastroesophageal Reflux Disease Sensory History: Denies: Hx Contacts or Glasses Opthamlomology History: Denies: Hx Contacts or Glasses Neurological History: Reports: Hx Headaches, Hx Migraine Psychiatric History: Reports: Hx Anxiety, Hx Eating Disorder, Hx Depression - MDD , Hx Post Traumatic Stress Disorder, Hx Community Mental Health Tx Denies: Hx Panic Disorder, Hx Inpatient Treatment, Hx Schizophrenia, Hx Suicide Attempt, Hx of Violent Episodes Against Others, Hx Substance Abuse - Surgical History Surgery Procedure, Year, and Place: surgeries on ears and eyes prior to age 3 Infectious Disease History: No Infectious Disease History: Denies: Traveled Outside the [place] in Last 30 Days - Family History Known Family History: Positive: Other - ETOH - Social History Alcohol Use: None Hx Substance Use: Yes Substance Use Type: Reports: Marijuana Hx Tobacco Use: Yes Smoking Status (MU): Light Every Day Tobacco Smoker Review of Systems All Other Systems Reviewed And Are Negative: Yes Physical Exam Triage Information Reviewed: Yes Vital Signs On Initial Exam: Initial Vitals Temp Pulse Resp BP Pulse Ox 98.6 F 102 16 109/80 98 08/09/19 13:52 08/09/19 13:52 08/09/19 13:52 08/09/19 13:52 08/09/19 13:52 Vital Signs Reviewed: Yes Procedures - Sedation Patient Received Moderate/Deep Sedation with Procedure: No Diagnostics - Vital Signs Vital Signs Temp Pulse Resp BP Pulse Ox 08/09/19 13:52 37.0 C 102 16 109/80 98 - Laboratory Lab Statement: Any lab studies that have been ordered have been reviewed, and results considered in the medical decision making process. Course/Dx - Diagnoses Provider Diagnoses: Migraine, Patient left before evaluation by physician Discharge ED - Sign-Out/Discharge Documenting (check all that apply): Patient Departure - Discharge Plan Condition: Stable Disposition: LEFT WITHOUT BEING SEEN Referrals: Karolyn Recinos MD [Primary Care Provider] - - Billing Disposition and Condition Condition: STABLE Disposition: Left Without Being Seen
== END 2019-08-09 14:44 | disposition left against medical advice (07) ==
LOC: ED 13:40
DX: R51 Headache (principal); Z53.21 Procedure and treatment not carried out due to patient leaving prior to being seen by health care provider
CPT/HCPCS: 99281